=== PATIENT | female | born 1970 | race Caucasian/White ===

== ENCOUNTER 2020-01-20 08:54 | Emergency (ER) | payer OTHER, SELFPAY ==
[2020-01-20] VITALS (9 sets, daily range): BP systolic 88–127; BP diastolic 55–89; PULSE 66–90; RESP 13–21; TEMP 36.6–37.2; O2SAT 93–100
--- NOTE | 2020-01-20 | ECG_ITS ---
Measurements Intervals [place] Rate: 78 P: -6 AL: 107 QRS: 47 QRSD: 91 T: 31 QT: 386 QTc: 440 Interpretive Statements SINUS RHYTHM WITH SHORT AL INTERVAL BORDERLINE T WAVE ABNORMALITY- INFERIOR LEADS BORDERLINE ECG Electronically Signed On 01-20-2020 13:16:47 METAL ENGRAVER by Reggie Orta D.O.
--- NOTE | ~2020-01-20 | XR_ITS ---
EXAMINATION: XR chest 2V 01/20/2020 09:56 INDICATION: Syncope. Cough. PROCEDURE: 2 view chest COMPARISON: 07/26/2019 FINDINGS: The lungs are clear. The cardiomediastinal silhouette is within normal limits. There are no pleural effusions. There is no pneumothorax suspected. IMPRESSION: 1: NO ACUTE CARDIOPULMONARY DISEASE. Reviewed, dictated and finalized at location B. HOSE COUPLER
--- NOTE | ~2020-01-20 | CT_ITS ---
EXAMINATION: CT brain wo con DATE: 01/20/2020 09:52 INDICATION: Status post fall. Head and neck pain. CT dated 07/26/2019 TECHNIQUE: Computed tomography (CT) of the head was performed without intravenous contrast. The dose- length product was 605.33 mGy-cm. The mA was adjusted according to patient size. Iterative reconstruc tion technique was employed. COMPARISON: CT dated 07/26/2019 FINDINGS: Normal alvarez-white differentiation. There are scattered mild periventricular and subcortical white matter changes, most likely related to small vessel ischemic disease (microangiopathy). No acu te intracranial hemorrhage, infarction, mass or mass effect. Basilar cisterns are patent. There is ai r-fluid levels in the maxillary sinuses. Small mucous retention cyst left sphenoid sinus. Mastoids ar e pneumatized. No depressed skull fractures. IMPRESSION: 1. No acute intracranial abnormality. 2: Chronic age-related findings. 3: Mild sinusitis, likely acute. Reviewed, dictated and finalized at location B. ET PUNCH OPERATOR
--- NOTE | ~2020-01-20 | CT_ITS ---
EXAMINATION: CT cervical spine wo con DATE: 01/20/2020 09:52 INDICATION: Neck pain. TECHNIQUE: Computed tomography (CT) of the cervical spine was performed without intravenous contrast. The dose-length product was 148 mGy-cm. Automated exposure control and iterative reconstruction tech nique were employed. COMPARISON: None FINDINGS: Straightening of cervical lordosis, likely due to muscle spasm or patient positioning. [place]land toid process within normal limits. Vertebral body heights are maintained. There is mild multilevel un cinate degenerative change. Lung apices are normal. No paraspinal soft tissue abnormality. No acute f racture or traumatic malalignment. IMPRESSION: 1. No acute fracture. Reviewed, dictated and finalized at location B. AULIC SPECIALIST IMPRESSION: 1. No acute fracture.
--- NOTE | 2020-01-20 09:24 | PC.NURSE ---
FE AT BEDSIDE DRAWING PT LABS AT THIS TIME.
[2020-01-20 09:39] LABS: Basophils Absolute Auto 0.1 K/mm3 (0.0-0.1); Basophils Percent Auto 0.6 % (0.2-1.2); Eosinophils Percent Auto 0.3 % (0-4.4); Hematocrit 37.8 % (37.0-47.0); Hemoglobin 12.4 g/dL (12.0-15.0); Immature Granulocyte Absolute 0.05 K/mm3 (0.00-0.031); Immature Granulocyte Percent A 0.5 % (0-0.5); Lymphocytes Absolute Auto 0.83 K/mm3 (0.9-3.2); Lymphocytes Percent Auto 8.8 % (18.3-44.2); Mean Corpuscular HGB Conc 32.8 g/dl (32-36); Mean Corpuscular Hemoglobin 32.2 pg (26-34); Mean Corpuscular Volume 98.2 fl (80-100); Mean Platelet Volume 10.5 fl (7.4-10.4); Monocytes Absolute Auto 0.6 K/mm3 (0.1-0.6); Monocytes Percent Auto 6.8 % (2.6-8.5); Neutrophils Absolute Auto 7.8 K/mm3 (1.3-6.7); Platelet Count Result 181 k/mm3 (150-375); Red Blood Count 3.85 M/mm3 (4.2-5.4); Red Cell Distribution Width 12.8 % (11.5-14.5); White Blood Count 9.4 K/mm3 (4.5-10.0)
--- NOTE | 2020-01-20 09:53 | PC.NURSE ---
PT IN SCANNER.
[2020-01-20 09:55] LABS: Blood Urea Nitrogen 16 mg/dL (7-17); Calcium 8.2 mg/dL (8.4-10.2); Carbon Dioxide 24 mmol/L (22-30); Chloride 105 mmol/L (98-107); Estimated CRCL calculation 104 ml/min; Estimated Glomerular Filt Rate > 60; Glucose 89 mg/dL (65-105); Potassium 3.6 mmol/L (3.4-5.0); Sodium 136 mmol/L (137-145)
[2020-01-20 10:10] LABS: Troponin I < 0.012 ng/mL (0.000-0.034)
[2020-01-20] MEDS: SODIUM CHLORIDE 0.9% IV 1,000 ML 999 ML IV CONT ×2 (10:12→12:04)
--- NOTE | 2020-01-20 10:26 | ED.DIZZY ---
HPI - Dizziness General Chief Complaint: Dizziness Stated Complaint: DIZZINESS/SYNCOPE Time Seen by Provider: 01/20/20 09:11 Source: patient and family Mode of arrival: EMS Limitations: no limitations History of Present Illness HPI Narrative: This is a 49-year-old female that presents the emergency department for syncopal episode today. Reports over the last couple of weeks she has had cough, congestion, and sore throat. Reports she has been seen by her PCP for this and started on prednisone and an antibiotic. Reports worsening symptoms in the last 2 days. Reports today she walked upstairs to tell her son to get ready to go to the doctor. Reports she suddenly started feeling lightheaded and blacked out. Reports hitting her head on the bed frame. Reports since she has had a headache and neck pain. Denies fever, chest pain, shortness of breath, vision changes, vomiting, numbness or weakness. Related Data Home Medications Medication Instructions Recorded Confirmed doxycycline hyclate 20 mg PO Q12H 01/20/20 Allergies Allergy/AdvReac Type Severity Reaction Status Date / Time hydrocodone Allergy Mild TACHYCARDIA Verified 07/26/19 12:38 Review of Systems Review of Systems: Narrative: CONSTITUTIONAL: Denies fever EYES: Denies visual changes ENT: Reports rhinorrhea, congestion, sore throat. Denies otalgia. CARDIOVASCULAR: Denies chest pain, palpitations RESPIRATORY: Reports cough. Denies dyspnea. GASTROINTESTINAL: Denies vomiting MUSCULOSKELETAL: Reports joint pain, and myalgia. NEUROLOGIC: Reports headache. Denies numbness, or weakness. All systems reviewed & are unremarkable except as noted in HPI and below PMFSH Past Medical History Medical History (Updated 01/20/20 @ 13:23 by Martine Baez PA-C) History of hyperlipidemia Social History Social History (Updated 01/20/20 @ 10:29 by Martine Baez PA-C) Smoking status: Never smoker Substance use: never Gender identity (if verbalized by the patient): Female Exam Narrative: Exam Narrative: GENERAL: Well-appearing, well-nourished, and in no acute distress. HEAD: Normocephalic, atraumatic. EYES: PERRLA and EOMI. ENT: Nares clear, no rhinorrhea or epistaxis. Mucous membranes moist. Oropharynx without tonsillar hypertrophy exudate or other lesions. Bilateral TMs pearly alvarez non-bulging NECK: Supple. No adenopathy or masses. Tender palpation of midline cervical spine CHEST: Clear to auscultation. No respiratory distress. No wheezes rales or rhonchi HEART: Regular rate and rhythm. No murmur heard. Normal peripheral pulses. ABDOMEN: Soft, nontender, nondistended, normal active bowel sounds. BACK: Nontender to palpation of midline thoracic or lumbar spine EXTREMITIES: Normal range of motion. No edema. SKIN: Warm, dry, no rash. NEURO: No focal deficits. Alert and oriented x3. Cranial nerves II through XII grossly intact. Normal [id number] PSYCH: Normal mood and affect Course Consultations Consultation #1: Spoke with patient's primary about patient and work-up will follow-up in clinic Date: 01/20/20 Time: 13:21 Vital Signs Vital signs: Vital Signs Temperature 97.9 F 01/20/20 09:09 Pulse Rate 73 01/20/20 09:09 Respiratory Rate 13 01/20/20 09:09 Blood Pressure 90/65 L 01/20/20 09:09 Pulse Oximetry 93 01/20/20 09:09 Temperature 97.9 F 01/20/20 09:09 Pulse Rate 66 01/20/20 12:51 Respiratory Rate 19 01/20/20 12:51 Blood Pressure 99/68 L 01/20/20 12:51 Pulse Oximetry 95 01/20/20 12:51 MDM - Dizziness MDM Narrative Medical decision making narrative: Patient presents the emergency department for syncopal episode today. Reports feeling lightheaded and then passing out. She denies any chest pain, palpitations or shortness of breath. Patient is neurologically intact. CBC and metabolic panel without acute changes. Troponin is negative. EKG without concerning changes. UA without evidence of infection. Lactic acid is not
[2020-01-20 10:47] LABS: Lactic Acid Reflex 0.8 mmol/L (0.7-2.1)
[2020-01-20 11:38] LABS: Add Urine Microscopic? YES; Appearance Urine Clear (Clear); Bacteria Urine Trace /hpf; Bilirubin Urine Negative (Negative); Blood Urine Negative (Negative); Color Urine Yellow (Yellow); Glucose Urine UA Negative (Negative); Ketones Urine 1+ mg/dL (Negative); Leukocyte Esterase Ur Negative LEU/UL (Negative); Mucus Urine Heavy /lpf; Nitrate Urine Negative (Negative); Protein Urine 2+ mg/dL (Negative); Squamous Epithelial Cell Urine Rare /hpf (Few); Urobilinogen Urine Negative mg/dL (<2.0); WBC Urine 0-3 /hpf
[2020-01-20 11:39] LABS: Specific Grav Ur 1.032 (1.001-1.035)
[2020-01-20] MEDS: OSELTAMIVIR PHOSPHATE 75 MG CAP PO (13:28)
== END 2020-01-20 13:42 | disposition home or self-care (01) ==
PROVIDERS: Physician Assistant; Emergency Provider Emergency Medicine; PCP Student in an Organized Health Care Education/Training Program
DX: J10.1 Influenza due to other identified influenza virus with other respiratory manifestations (principal); I95.9 Hypotension, unspecified; J32.9 Chronic sinusitis, unspecified; R94.31 Abnormal electrocardiogram [ECG] [EKG]
CPT/HCPCS: 36415; 70450; 71046; 72125; 80048; 81001; 81025; 83605; 84484; 85025; 87804; 93005; 96361; 96365; 99284; A9270; J0131; J7030

== ENCOUNTER → 2022-04-25 07:50 | Outpatient (CLI) | payer OTHER, SELFPAY ==
--- NOTE | ~2022-04-25 | MR_ITS ---
EXAMINATION: MR lumbar spine wo con DATE: 04/25/2022 08:54 INDICATION: Lumbar radiculopathy. TECHNIQUE: Magnetic resonance imaging (MRI) of the lumbar spine was performed without intravenous con trast. Sequences included sagittal T2-weighted FSE, sagittal T2-weighted FS FSE, sagittal T1-weighted FSE, and axial T2-weighted FSE. COMPARISON: None FINDINGS: Bone alignment is normal. Vertebral body heights are normal. There is mildly decreased disc height at L4-L5. The distal spinal cord signal intensity is normal. The conus medullaris is at T12. The following disc levels are specifically discussed: L1-L2: The disc does not extend beyond the endplate margin. There is mild bilateral facet joint osteo arthritis. There is no neural foraminal stenosis. There is no central canal stenosis. L2-L3: The disc does not extend beyond the endplate margin. There is moderate bilateral facet joint o steoarthritis. There is no neural foraminal stenosis. There is no central canal stenosis. L3-L4: The disc does not extend beyond the endplate margin. There is mild bilateral facet joint osteo arthritis. There is no neural foraminal stenosis. There is no central canal stenosis. L4-L5: The disc is bulging and has an annular fissure. There is moderate bilateral facet joint osteoa rthritis. There is mild bilateral neural foraminal stenosis. There is mild central canal stenosis. L5-S1: The disc is bulging and has an annular fissure. There is severe bilateral facet joint osteoart hritis. There is mild bilateral neural foraminal stenosis. There is mild central canal stenosis. IMPRESSION: 1. Mild lumbar spondylosis. Reviewed, dictated and finalized at location A. IMPRESSION: 1. Mild lumbar spondylosis.
--- NOTE | ~2022-04-25 | MR_ITS ---
EXAMINATION: MR hip LT wo con DATE: 04/25/2022 08:48 INDICATION: Chronic left hip pain. TECHNIQUE: Magnetic resonance imaging (MRI) of the left hip was performed without intravenous contras t. COMPARISON: None FINDINGS: Bones/cartilage: Bone alignment is normal. No fracture. The femoral head/neck morphologies are normal. The hip joints demonstrate osteophytes. Small [id number] images of left hip demonstrate partial thickness cartila ge loss superiorly and posteriorly. Labrum: The left acetabular labrum is normal. Fluid: There is no hip joint effusion. There is mild bilateral trochanteric bursitis. Soft tissues: There is mild bilateral gluteus minimus tendinopathy. The gluteus medius tendons are normal. The hams tring origins are normal. The iliopsoas tendons are normal. The rectum is distended. IMPRESSION: 1. Mild osteoarthritis of the hips. Reviewed, dictated and finalized at location A.
== END ==
PROVIDERS: PCP Student in an Organized Health Care Education/Training Program; Visit Provider Student in an Organized Health Care Education/Training Program
DX: M54.16 Radiculopathy, lumbar region (principal); M43.16 Spondylolisthesis, lumbar region; M16.0 Bilateral primary osteoarthritis of hip
CPT/HCPCS: 72148; 73721

== ENCOUNTER 2022-05-21 00:50 | Day surgery (SDC) | payer OTHER, SELFPAY ==
[2022-05-12 17:25] VITALS: BMI 25.2
--- NOTE | 2022-05-12 17:26 | PCDIET ---
Addendum entered by Katrin Kasper RN 05/13/22 11:02: PT INSTRUCTED TO CALL DR. SILVERIO'S OFFICE REGARDING STOP DATE FOR ASPIRIN. PT ALSO INSTRUCTED TO DISCONTINUE MULTIVITAMIN 3 DAYS PRIOR TO SURGERY (LAST DOSE 05/17). PT VERBALIZES UNDERSTANDING. Original Note: Report to the Outpatient Waiting Room, entrance under the green pavilion located off [facility], at time _1100_ on date _[id number]_. OR Time: _1300_. - You and your visitor will be asked a series of questions to screen for COVID 19 for your protection. - Only one visitor is allowed at this time. - The patient visitor is requested to leave or wait in car when not with patient. - A mask is required within the hospital. Patients may have clear liquids (water, carbonated beverages, clear teas, apple juice) until 3 hours prior to surgery with a maximum of 20 ounces. - No food from midnight until time of surgery Take the following medications with a SIP of water the morning of surgery: ___None Medications to discontinue per physician ____None Date to take last dose Please no make-up, nail nauruan, hairspray, perfume, deodorant, or body powder the day of surgery. No jewelry (including any body piercings) or valuables the day of surgery, leave them at home. Please take a shower or bath the night before, or the morning of, surgery with an antibacterial soap. Wear comfortable, loose fitting clothing. - Jewelry must be removed prior to entering the operating room. Rings and piercings that are not removed may be cut off. - The hospital will not accept responsibility for valuables. - Please leave all valuables, including medications, at home the day of surgery. If you are going home after surgery, a licensed waste collection driver must drive you home. - NO public transportation without another adult. - We recommend that an adult stay with you for 24 hours following discharge. - We also recommend that you do not drive, make important decision, drink alcoholic beverages, or take any drugs that were not prescribed by your health care provider for at least 24 hours after your discharge time. Follow any additional instructions given to you from your surgeon. If you or anyone in your household have experienced Covid symptoms in the past week, please notify your surgeon or the nurse liaison at the phone number below for possible testing. Telephone instructions given to Patient and asked if any additional questions and then verbalized understanding. Patient advised to call surgeon office or pre surgery nurse liaison [phone] if any additional questions.
--- NOTE | 2022-05-20 10:22 | WPDANESEPPF ---
Anes - Initial Pre Proc Eval Procedure: Operation Date: 05/21/22 13:00 Proposed Procedures p Loop Electrical Excision Procedure with Top Hat - Vicente Hutchinson MD Date/Time: 05/20/22 10:22 Surgeon: Vicente Hutchinson MD Pre Op Diagnosis: Low Grade S.I.L. Patient Data Age: 51 Gender: F Height: 1.63 m Weight: 66.8 kg Allergies Allergy/AdvReac Type Severity Reaction Status Date / Time terbinafine Allergy Severe Rash Verified 05/21/22 10:04 hydrocodone Allergy Mild TACHYCARDIA Verified 05/21/22 10:04 Home Medications Medication Instructions Recorded Confirmed Type aspirin 81 mg tablet,delayed 81 mg PO DAILY 03/24/22 05/21/22 History release evolocumab 140 mg/mL subcutaneous 140 mg subcut ONCE 03/24/22 05/21/22 History pen injector (Repatha SureClick) rosuvastatin 40 mg tablet (Crestor) 40 mg PO DAILY 03/24/22 05/21/22 History multivitamin 1 tablet PO DAILY 05/12/22 05/21/22 History tramadol 50 mg tablet 50 mg PO Q6H PRN Pain 05/12/22 05/21/22 History Patient hx anesthesia problems: none Family hx anesthesia problems: none Results Review: All pre-operative results and documents have been reviewed as part of the pre-operative evaluation. FOR[facility]LY [facility] Past Medical History Medical History Anxiety AUGUSTO I (cervical intraepithelial neoplasia I) Headache History of hyperlipidemia TIA (transient ischemic attack) Surgical History Surgical History H/O tubal ligation History of carpal tunnel surgery S/P dilation and curettage S/P endometrial ablation [place] teeth removed Family History Family History Mother Family history of cardiovascular disease Father Family history of cardiovascular disease Grandparent Family history of cardiovascular disease Other Hypertension Social History Social History Smoking status: Never smoker Alcohol intake: current Drinks per week: 2 Substance use: never Living arrangements: with family Gender identity (if verbalized by the patient): Female Spiritual care concerns: No Anes - Eval Final PreProcedure Day of Procedure 05/20/22 10:22 Patient weight: normal Heart: regular rate and rhythm Lungs: clear to auscultation and normal air movement Airway: Mallampati scale class II Neurological: alert and oriented Last oral intake: >/= 8 hours ASA classification: III Emergent: no Anesthetic plan: proceed Anesthesia type and monitoring: general GIVS Results Review: All pre-operative results and documents have been reviewed as part of the pre-operative evaluation. Informed Consent: The patient's anesthetic plan and its attendant risks and benefits were discussed with the patient/family/POA. Questions were solicited and answers provided to the satisfaction of the patient/family/POA.
--- NOTE | 2022-05-20 22:55 | PM.IMHP ---
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 The cervical biopsies at 6 and 11 and endocervical curette positive for CIN1. She was recommended for LEEP which she wants to proceed with this ablative procedure. Review of Systems Review of Systems: All systems reviewed & are unremarkable except as noted in HPI and below Constitutional: Constitutional: Reports no additional constitutional complaints Eyes: Eyes: Reports no additional eye complaints Cardiovascular: Cardiovascular: Reports no additional cardiovascular complaints Respiratory: Respiratory: Reports no additional respiratory complaints Gastrointestinal: Gastrointestinal: Reports no additional gastrointestinal complaints Genitourinary: Genitourinary: Reports no additional female genitourinary complaints and Reports as per HPI Integumentary/Breasts: Skin/Breast: Reports system reviewed and no additional complaints, except as docu Neurologic: Reports system reviewed and no additional complaints, except as documented Psychiatric: Psychiatric: Reports no additional psychiatric complaints Hematologic/Lymphatic: Hematologic/Lymphatic: Reports no additional hematologic/lymphatic complaints REPLACED BY [facility] Past Medical History Medical History Anxiety AUGUSTO I (cervical intraepithelial neoplasia I) Headache History of hyperlipidemia TIA (transient ischemic attack) Surgical History Surgical History H/O tubal ligation History of carpal tunnel surgery S/P dilation and curettage S/P endometrial ablation [place] teeth removed Family History Family History Mother Family history of cardiovascular disease Father Family history of cardiovascular disease Grandparent Family history of cardiovascular disease Other Hypertension Social History Social History Smoking status: Never smoker Alcohol intake: current Drinks per week: 2 Substance use: never Gender identity (if verbalized by the patient): Female Spiritual care concerns: No Meds Home Medications and Allergies Home Medications Medication Instructions Recorded Confirmed Type aspirin 81 mg tablet,delayed 81 mg PO DAILY 03/24/22 05/12/22 History release evolocumab 140 mg/mL subcutaneous 140 mg subcut ONCE 03/24/22 05/12/22 History pen injector (Repatha SureClick) rosuvastatin 40 mg tablet (Crestor) 40 mg PO DAILY 03/24/22 05/12/22 History multivitamin 1 tablet PO DAILY 05/12/22 05/12/22 History tramadol 50 mg tablet 50 mg PO Q6H PRN Pain 05/12/22 05/12/22 History Allergies Allergy/AdvReac Type Severity Reaction Status Date / Time terbinafine Allergy Severe Rash Verified 05/12/22 17:14 hydrocodone Allergy Mild TACHYCARDIA Verified 05/12/22 17:14 Exam Const: General: comfortable and no acute distress Orientation/consciousness: oriented to person, oriented to place and oriented to time Eyes: General: appearance normal, both eyes and all related structures Neck: Neck: normal visual inspection Resp: Effort & Inspection: normal respiratory effort Auscultation: clear to auscultation bilaterally Cardio: Rate: regular rate Rhythm: regular rhythm GI: Inspection: normal to inspection GI Palp: No abdominal tenderness and Yes No hepatosplenomegaly present : External Female Exam: normal external appearance Speculum Exam - Vagina: normal appearance of the vagina Speculum Exam - Cervix: normal appearance of the cervix Bimanual exam- vagina & uterus: normal bimanual exam, uterine mobility normal, uterine shape normal and non-tender Bimanual Exam- Adnexa, oth
[2022-05-21 10:02] VITALS: BP 115/74; PULSE 63; RESP 18; TEMP 36.3; O2SAT 100
[2022-05-21] MEDS: ACETAMINOPHEN 500 MG TABLET 1000 MG PO (10:19)
[2022-05-21] MEDS: LACTATED RINGERS 1,000 ML 30 ML IV CONT (10:19)
--- NOTE | 2022-05-21 10:23 | WPDHPUPDATE1 ---
History and Physical Update Update Date/Time: 05/21/22 10:23 History and Physical has been reviewed, including an updated exam of the patient. There are NO changes in the patient's condition. Risks, benefits, and alternatives have been discussed and questions answered. Patient agrees to proceed with procedure.
[2022-05-21] MEDS: ceFAZolin 2 GM/D5W 50 ML 2 GM/50 ML BAG IVPB (10:44)
[2022-05-21] MEDS: IODINE/POTASSIUM IODIDE 8 ML SOLUTION 2 ML TOPICAL (10:55)
[2022-05-21] MEDS: LIDOCAINE HCL 1% LOCAL INJ 20 ML VIAL 10 ML INFILTRATE (10:55)
[2022-05-21] MEDS: FERRIC SUBSULFATE 8 ML SOLUTION WITH APPLICATOR 2 ML TOPICAL (10:55)
[2022-05-21 11:09] VITALS: BP 94/58; PULSE 64; RESP 16; O2SAT 95
[2022-05-21 11:38] VITALS: BP 93/60; PULSE 58; RESP 16
[2022-05-21 11:54] VITALS: BP 96/41; PULSE 56; RESP 18
--- NOTE | 2022-05-21 13:24 | W.PM.PROC2 ---
Procedure Note - Detailed Date of Procedure 05/21/22 Pre-op Diagnosis Low Grade S.I.L. Post-op Diagnosis Same Procedure Performed Loop electrosurgical excision procedure Surgeon Vicente Hutchinson MD Anesthesia MAC and Local Indications Positive CIN1 on ECC Findings No hypopigmentation with Lugols visualized. Description of Procedure The patient was taken to the OR where adequate IV sedation was administered. She was then prepped and draped in the usual sterile fashion and placed in the dorsal lithotomy position. A Graves speculum was placed in the vagina. Lugol?s solution was painted along the entire cervix and vaginal wall. No areas of hypopigmentation noted. 10 cc of lidocaine with epinephrine was injected at surgical site. The large loop electrode was used to enclose the transformation zone. The specimen was sent to pathology. The smallest loop electrode was used to obtain a top hat for excision of the endocervix. The bed of the excised cervical tissue along the cervix was cauterized using the roller ball. Monsel's solution was placed. Hemostasis was noted. All instruments were removed from vagina at this point. The patient tolerated the procedure well without complication and was taken to the recovery room in stable condition. Estimated Blood Loss 5 Drains No Packing No Pathology Yes (Ectocervical and endocervical LEEP pass, ecto cervix specimen cut at 12.) Complications No immediate complications Condition Stable Disposition Same day [facility] Billing Surgery - Charge Forward: Surgery Billing
== END 2022-05-21 12:00 | disposition home or self-care (01) ==
PROVIDERS: PCP Student in an Organized Health Care Education/Training Program; Visit Provider Obstetrics & Gynecology
PROC: 0UBC7ZZ Excision of Cervix, Via Natural or Artificial Opening (ICD-10-PCS; CPT 57522; principal; 2022-05-21 13:00)
DX: R87.612 Low grade squamous intraepithelial lesion on cytologic smear of cervix (LGSIL) (principal); E78.5 Hyperlipidemia, unspecified; Z86.73 Personal history of transient ischemic attack (TIA), and cerebral infarction without residual deficits; Z79.82 Long term (current) use of aspirin
CPT/HCPCS: 57522; 88305; 88307; A9270; J0690; J1100; J1885; J2250; J2405; J2704; J3010; J7120

== ENCOUNTER 2022-06-25 15:35 | Emergency (ER) | payer OTHER, SELFPAY ==
[2022-06-25 15:42] VITALS: BP 110/71; PULSE 66; RESP 16; TEMP 36.7; O2SAT 100
--- NOTE | 2022-06-25 16:01 | ED.EXTPRO ---
HPI - Extremity Problem General Chief complaint: Extremity Problem,Nontraumatic Stated complaint: left leg pain Time Seen by Provider: 06/25/22 16:02 Source: patient Mode of arrival: ambulatory Limitations: no limitations History of Present Illness HPI Narrative: 52-year-old female presented for complaint of left lower leg redness, pain, and mild swelling for 4 days. Endorses tenderness to touch and feels a 'knot.' She denies known injury or trauma. Denies prolonged immobilization or recent travel. Denies chest pain, heart racing, shortness of breath, fever or chills. Related Data Home Medications Medication Instructions Recorded Confirmed aspirin 81 mg tablet,delayed 81 mg PO DAILY 03/24/22 06/25/22 release evolocumab 140 mg/mL subcutaneous 140 mg subcut ONCE 03/24/22 06/25/22 pen injector (Repatha SureClick) rosuvastatin 40 mg tablet (Crestor) 40 mg PO DAILY 03/24/22 06/25/22 multivitamin 1 tablet PO DAILY 05/12/22 06/25/22 Allergies Allergy/AdvReac Type Severity Reaction Status Date / Time terbinafine Allergy Severe Rash Verified 06/25/22 15:47 hydrocodone Allergy Mild TACHYCARDIA Verified 06/25/22 15:47 Review of Systems Review of Systems: CONSTITUTIONAL: Denies body aches, fever, chills EYES: Denies visual changes ENT: Denies rhinorrhea, congestion CARDIOVASCULAR: Denies chest pain, palpitations, or edema. RESPIRATORY: Denies cough or dyspnea. GASTROINTESTINAL: Denies abdominal pain, nausea, vomiting, or diarrhea. SKIN: Denies rash, itching, or wounds. MUSCULOSKELETAL: Reports lower leg pain/swelling NEUROLOGIC: Denies headache, numbness, tingling, or weakness. PSYCH: Denies depression or anxiety. All systems reviewed & are unremarkable except as noted in HPI and below PMFSH Past Medical History Medical History Anxiety AUGUSTO I (cervical intraepithelial neoplasia I) Headache History of hyperlipidemia TIA (transient ischemic attack) Surgical History Surgical History H/O tubal ligation History of carpal tunnel surgery S/P dilation and curettage S/P endometrial ablation [place] teeth removed Family History Family History Mother Family history of cardiovascular disease Father Family history of cardiovascular disease Grandparent Family history of cardiovascular disease Other Hypertension Social History Social History Smoking status: Never smoker Alcohol intake: current Drinks per week: 2 Substance use: never Gender identity (if verbalized by the patient): Female Spiritual care concerns: No Comments At time of signature, I have reviewed and agree with nursing past medical, surgical, social and family history unless otherwise noted. Please see nursing chart for further information. There is no relevant family history pertinent to the presenting complaint Exam Narrative: GENERAL: Well-appearing EYES: conjunctivae clear CHEST: Speaks in full sentences. No respiratory distress. HEART: Regular rate and rhythm. Normal and equal peripheral pulses. EXTREMITIES: Left anterior lower leg just proximal to ankle has mild swelling (1+) and irregular area of light erythema approx 4cm diameter mild tender to palpation; subcutaneous tender palpable cord medial to area of erythema c/w phlebitis; foot has normal strength and sensation, normal range of motion. No bruising, No open wounds, or obvious deformity; pulse palpable and equal bilaterally, skin warm, dry, pink. Capillary refill less than 3 seconds. SKIN: Warm, dry, no rash. NEURO: Alert and oriented x3. PSYCH: Normal mood and affect Course Course Emergency Course: Patient is aware of diagnosis, understands and agrees to treatment plan. Anticipatory guidance given. Patient agrees to follow-up as dir
== END 2022-06-25 16:24 | disposition home or self-care (01) ==
PROVIDERS: Emergency Provider Nurse Practitioner Family; PCP Student in an Organized Health Care Education/Training Program
DX: I80.3 Phlebitis and thrombophlebitis of lower extremities, unspecified (principal); E78.5 Hyperlipidemia, unspecified; Z86.73 Personal history of transient ischemic attack (TIA), and cerebral infarction without residual deficits; Z79.82 Long term (current) use of aspirin; N87.0 Mild cervical dysplasia
CPT/HCPCS: 99213; G0463

== ENCOUNTER 2022-06-26 16:00 | Outpatient (CLI) | payer OTHER, SELFPAY ==
--- NOTE | ~2022-06-26 | US_ITS ---
EXAMINATION:US venous doppler LE LT INDICATION:Left leg pain TECHNIQUE: Multiple grayscale, color flow and Doppler images of the left lower extremity deep venous systems were obtained and reviewed. COMPARISON:No prior studies for comparison. FINDINGS: The common femoral, superficial femoral and popliteal veins demonstrate normal respiratory variation, augmentation and compressibility. Color flow is also seen within the posterior tibial, pe roneal, greater saphenous and profunda veins. IMPRESSION: 1: No lower extremity deep venous thrombosis. Reviewed, dictated and finalized at location A.
== END 2022-06-26 16:01 | disposition home or self-care (01) ==
PROVIDERS: PCP Student in an Organized Health Care Education/Training Program; Visit Provider Student in an Organized Health Care Education/Training Program
DX: M79.605 Pain in left leg (principal)
CPT/HCPCS: 93971

== ENCOUNTER 2022-12-03 07:52 | Outpatient (CLI) | payer OTHER, SELFPAY ==
--- NOTE | ~2022-12-03 | MM_ITS ---
EXAMINATION: MM screening desean BI w rob HISTORY: Screening mammogram TECHNIQUE: Craniocaudal and mediolateral oblique 3-D tomosynthesis images were obtained and synthetic 2-D images were generated. CAD analysis was submitted and interpreted. COMPARISON: No prior mammogram is available for comparison at this institution. BREAST PARENCHYMAL COMPOSITION: There are scattered areas of fibroglandular density. FINDINGS: There is no evidence of suspicious mass, calcification, or architectural distortion to sugg est malignancy in either breast. There has been no suspicious interval change. IMPRESSION: 1. No mammographic evidence of malignancy. 2. Recommend routine screening mammography in one year. BI-RADS Category 1: Negative Reviewed, dictated and finalized at location B. 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
== END 2022-12-03 07:53 | disposition home or self-care (01) ==
LOC: ANHIMG 07:54
PROVIDERS: PCP Student in an Organized Health Care Education/Training Program; Visit Provider Obstetrics & Gynecology
DX: Z12.31 Encounter for screening mammogram for malignant neoplasm of breast (principal)
CPT/HCPCS: 77063; 77067

== ENCOUNTER 2024-01-20 08:10 | Outpatient (CLI) | payer OTHER, SELFPAY ==
--- NOTE | ~2024-01-20 | MM_ITS ---
EXAMINATION: MM screening desean BI w rob HISTORY: Screening mammogram TECHNIQUE: Craniocaudal and mediolateral oblique 3-D tomosynthesis images were obtained and synthetic 2-D images were generated. CAD analysis was submitted and interpreted. COMPARISON: 12/03/2022 bilateral screening mammogram BREAST PARENCHYMAL COMPOSITION: There are scattered areas of fibroglandular density. FINDINGS: There is no evidence of suspicious mass, calcification, or architectural distortion to sugg est malignancy in either breast. There has been no suspicious interval change. IMPRESSION: 1. No mammographic evidence of malignancy. 2. Recommend routine screening mammography in one year. BI-RADS Category 1: Negative Reviewed, dictated and finalized at location A. 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
== END 2024-01-20 08:11 | disposition home or self-care (01) ==
LOC: ANHIMG 08:16
PROVIDERS: PCP Student in an Organized Health Care Education/Training Program; Visit Provider Obstetrics & Gynecology
DX: Z12.31 Encounter for screening mammogram for malignant neoplasm of breast (principal)
CPT/HCPCS: 77063; 77067

== ENCOUNTER 2025-01-23 15:39 | Outpatient (CLI) | payer OTHER, SELFPAY ==
--- NOTE | ~2025-01-23 | MM_ITS ---
EXAMINATION: MM screening desean BI w rob HISTORY: Screening mammogram TECHNIQUE: Craniocaudal and mediolateral oblique 3-D tomosynthesis images were obtained and synthetic 2-D images were generated. CAD analysis was submitted and interpreted. COMPARISON: 01/20/2024, 12/03/2022 BREAST PARENCHYMAL COMPOSITION:Not Dense. There are scattered areas of fibroglandular density. FINDINGS: No suspicious mass, calcification, or architectural distortion are identified in either porfirio ast to suggest malignancy. There has been no suspicious interval change. IMPRESSION: No mammographic evidence of malignancy. Recommend routine screening mammography in one year. BI-RADS Category 1: Negative Reviewed, dictated and finalized at location .
--- OUTSIDE RECORDS SUMMARY | 2025-01-23 18:26 | XMS_ITS | Encounter Summary ---
Author Organization [facility] Address [address] [place] [id number] Care Team Providers Care Merchandise Complaint Adjuster Name Role Phone Rigo Coyne DO Primary Care Provider + Encounter Details Date Type Department Care Team (Latest Contact Info) Description 09/21/2018 Abstract [facility] , Shannon Bhakta MD Social History Tobacco Use Types Packs/Day Years Used Date Smoking Tobacco: Never Assessed Comments Unknown Sex and Gender Information Value Date Recorded Sex Assigned at Female 12/22/2024 7:33 AM CLINICAL ASSESSMENT MANAGER Legal Sex Female 3:51 PM CDT Gender Identity Female 12/22/2024 7:33 AM CLINICAL ASSESSMENT MANAGER Sexual Orientation Not on file documented as of this encounter Plan of Treatment Upcoming Encounters Date Type Department Care Team (Late st Contact Info) Description 03/07/2025 7:40 AM CDT Laboratory Only [facility] [id number] [place] [phone] Rigo Coyne DO [address] [place] [address] 12/25/2025 7:20 AM CLINICAL ASSESSMENT MANAGER Office Visit [facility] [address] [place] [phone] Rigo Coyne DO [address] [place] [address] documented as of this encounter Visit Diagnoses Not on filedocumented in this encounter Care Teams Merchandise Complaint Adjuster Relationship Specialty Start Date End Date Rigo Coyne DO [address] [place] [id number] PCP - General FAMILY PRACTICE 10/14/18 documented as of this encounter
--- OUTSIDE RECORDS SUMMARY | 2025-01-23 18:26 | XMS_ITS | Clinical Summary ---
Author Organization [facility] D Address [address] [place] [address] Care Team Providers Care Line Maintenance Technician Name Role Phone Rigo Coyne Primary Care Provide r Allergies Active Allergy Reactions Criticality Noted Date Comments Adhesive Hives Medium 12/20/2024 Surgical tape Hydrocodone Dizziness,Palpitations,Unknown Low 08/16 Terbinafine Rash Medium 08/24/2019 Medications aspirin 81 mg tablet take 1 tablet by oral route every day 0 0 7 Active mv,calcium,min/ iron/folic/vitK (ONE-A-DAY WOMEN'S COMPLETE ORAL) Take by mouth A ctive ascorbic acid (VITAMIN C) 500 mg tablet,chewable Acti ve cholecalciferol , vitamin D3, (VITAMIN D3 ORAL) Take by mouth Active cyclobenzaprine (FLEXERIL) 10 mg tablet Takes prn 2 Active naproxen (NAPROSYN) 500 mg tablet 2 Active tirzepatide (MOUNJARO) 2.5 mg/0.5 mL pen injector Inject 0.5 mL (2.5 mg total) under the skin every 7 days Active rosuvastatin (CRESTOR) 40 mg tablet TAKE 1 TABLET BY MOUTH EVERY DAY 90 tablet 1 4 Active evolocumab (Repatha SureClick) 140 mg/mL pen injector ADMINISTER 1 ML(140 MG) UNDER THE SKIN EVERY 14 DAYS 6 mL 3 4 Active estradioL (ESTRACE) 0.01 % (0.1 mg/gram) vaginal cream Insert into the vagina daily 4 Active Active Problems Problem Noted Date Diagnosed Date Screen for colon cancer 10/26/2024 Lumbar radiculopathy 02/16/2024 Chest tightness 10/07/2017 Assessment & Plan (10/07/2017 3:54 PM CENTRIFUGAL CHILLER TECHNICIAN): She complains of new onset chest tightness, with no exertional component, the setting of marked hyperlipidemia, family history of CAD, and an abnormal EKG. At this time I think it is unlikely this represents symptoms from coronary ischemia, however, given her risk factors I do think treadmill stress testing would be appropriate. Familial hypercholesterolemia 10/07/2017 Assessment & Plan (10/24/2021 3:26 PM CENTRIFUGAL CHILLER TECHNICIAN): Continue Repatha on high-dose rosuvastatin. Assessment & Plan (10/25/2020 3:35 PM CENTRIFUGAL CHILLER TECHNICIAN): Today's LDL is well controlled, continue high-dose statin and PC KS nine inhibitor. Assessment & Plan (10/06/2019 8:11 AM CENTRIFUGAL CHILLER TECHNICIAN): Marked improvement with the addition of Praluent still potential for additional LDL reduction. Will increase rosuvastatin 40 mg. Assessment & Plan (09/30/2018 11:45 AM CENTRIFUGAL CHILLER TECHNICIAN): Still elevated despite alirocumab, add crestor 20. Assessment & Plan (10/07/2017 3:55 PM CENTRIFUGAL CHILLER TECHNICIAN): Still elevated on 75 mg of Praluent. Will increase to 150 mg and reassess. Encounters Date Type Department Care Team Description 01/18/2025 2:51 PM CENTRIFUGAL CHILLER TECHNICIAN - 01/18/2025 11:59 PM CENTRIFUGAL CHILLER TECHNICIAN Hospital Encounter [facility] [address] [place] [address] Betsey Kapadia MD Lumbar radiculopathy Discharge Disposition: Discharge to home or self care 01/18/2025 Telephone [facility] at [address], [address] [place], [place] [address] Betsey Kapadia MD appt question 01/12/2025 Telephone [facility] [address] [place], [place] [address] Betsey Kapadia MD 01/05/2025 Orders Only [facility] [address] [place], [place] [address] Betsey Kapadia MD Lumbar radiculopathy (Primary Dx) 01/03/2025 Telephone [facility] [address] [place], [place] [phone] Betsey Kapadia MD Post Procedure 12/20/2024 2:30 PM CENTRIFUGAL CHILLER TECHNICIAN - 12/20/2024 11:59 PM CENTRIFUGAL CHILLER TECHNICIAN Hospital Encounter [facility] at [address] [place], [place] [address] Betsey Kapadia MD Lumbar radiculopathy Discharge Disposition: Discharge to home or self care 12/06/2024 12:37 PM CENTRIFUGAL CHILLER TECHNICIAN Anesthesia Event [address] [address] Casey Linn MD Williams, Calvin E., MD 12/06/2024 12:00 PM CENTRIFUGAL CHILLER TECHNICIAN - 12/06/2024 12:30 PM CENTRIFUGAL CHILLER TECHNICIAN Surgery [address] [address] Janusz Nguyen MD COLON BIOPSY 12/06/2024 11:34 AM CENTRIFUGAL CHILLER TECHNICIAN - 12/06/2024 1:57 PM CENTRIFUGAL CHILLER TECHNICIAN Hospital Encounter [address] [address] Janusz Nguyen MD Screen for colon cancer Discharge Disposition: Discharge to home or self care from Last 3 Months Surgical History Surgery Date Site/Laterality Comments TUBAL LIGATION tubal ligation CARPAL TUNNEL RELEASE COLONOSCOPY 02/14/2019 - 03/15/2019 COLONOSCOPY 12/06/2024 Medical History Medical History Date Comments Hypercholesterolemia High choles terol Anxiety Low back pain Anemia donated blood pr ior to blood tests, this is not yet confirmed Chronic pain disorder Family History Medical History Relation Name Comments Heart attack Other Family history of Myocardial infarction; Relation Name Status Comments Other Social History Tobacco Use Types Packs/Day Years Used Date Smoking Tobacco: Never Smokeless Tobacco: Never Tobacco Cessation:Counseling Given: Not Answered Alcohol Use Standard Drinks/Week Comments No 0 (1 standard drink = 0.6 oz pur e alcohol) AUDIT-C Answer Date Recorded Q1: How often do you have a drink containing alcohol? Never 01/18/2025 Q2: How many drinks containi ng alcohol do you have on a typical day when you are drinking? Patient does not drink Q3: How often do you have si x or more drinks on one occasion? Never 01/18/2025 Personal Safety Answer Date Recorded Have you ever been in or are you currently in a harmful physical or emotional relationship or is someone making you feel afraid or unsafe? Denies 12/06/2024 Comments No Sex and Gender Information Value Date Recorded Sex Assigned at Not on file Legal Sex Female 9:27 PM CENTRIFUGAL CHILLER TECHNICIAN Gender Identity Not on file Sexual Orientation Not on file Obstetrics History Last Filed Vital Signs Vital Sign Reading Time Taken Comments Blood Pressure 150/94 01/18/2025 3:56 PM CENTRIFUGAL CHILLER TECHNICIAN Pulse 63 01/18/2025 3:56 PM CENTRIFUGAL CHILLER TECHNICIAN Temperature 36 C (96.8 F) 01/18/2025 2:54 PM CENTRIFUGAL CHILLER TECHNICIAN Respiratory Rate 18 01/18/2025 3:56 PM CENTRIFUGAL CHILLER TECHNICIAN Oxygen Saturation 100% 01/18/2025 3:56 PM CENTRIFUGAL CHILLER TECHNICIAN Inhaled Oxygen Concentration - - Weight 57.2 kg (126 lb) 01/18/2025 2:54 PM CENTRIFUGAL CHILLER TECHNICIAN Height 160 cm (5' 3 ) 01/18/2025 2:54 PM CENTRIFUGAL CHILLER TECHNICIAN Body Mass Index 22.32 01/18/2025 2:54 PM CENTRIFUGAL CHILLER TECHNICIAN Plan of Treatment Health Maintenance Due Date Last Done Comments Cervical Cancer Screening 1970 Depression Screening 1970 Hepatitis C Screening 1970 Hepatitis B Screening 1986 Regular Well Visit/Exam 18-64 1986 Breast Cancer Screening-Mammogram 04/18/2022 04/18/2021, 01/09/2020, 11/03/2017, Additional history exists Covid-19 Vaccine ( - 2023- season) 2024 04/10/2021, 03/06/2021 DTaP/Tdap/Td Vaccine (3 - Td or Tdap) 05/23/2030 05/23/2020, 08/20/2016 Colon Cancer Screening-Colonoscopy 12/06/2034 12/06/2024 Zoster Vaccine Completed 06/03/2022, 03/04/2022 Influenza Vaccine Completed 10/01/2024, , 07/31/2022, Additional history exists Colon Cancer Screening-CT Colonography Discontinued 12/06/2024 Colon Cancer Screening-DNA Stool Discontinued 12/06/2024 Colon Cancer Screening-FIT Discontinued 12/06/2024 Colon Cancer Screening-Sigmoidoscopy Discontinued 12/06/2024 Pneumococcal vaccine <65 Aged Out No longer eligible based on patient's age to complete this topic Goals Goal Patient Goal Type Associated Problems Recent Progress Patient-Stated? Author CCM Chronic Pain Care Plan Chronic Care Management Yes Nga Dorsey, IDALMIS Note: Problem: Chronic Pain Goals: 1. Minimize further functional decline 2. Maximize quality of life 3. Control pain Strategies: - Activity/exercise program recommendation - Conservative stepwise pain medicine strategy with multi-disciplinary approach - Recommend healthy lifestyle strategies and compensatory methods as needed Reduce the likelihood of falling Lifestyle No Nga Dorsey, IDALMIS Note: Below are four things you can do to prevent falls: Begin an exercise program to improve your leg strength & balance Ask your doctor or pharmacist to review your medicines Get annual eye check-ups & update your eyeglasses Make your home safer by: Removing clutter & tripping hazards Putting railings on all stairs & adding grab bars in the bathroom Having good lighting, especially on stairs Contact your local community or senior center for information on exercise, fall prevention programs, or options for improving home safety. Procedures Procedure Name Priority Date/Time Associated Diagnosis Comments PAIN MGMT IMAGING LUMBAR/SACRAL SELECTIVE NERVE ROOT INJ (TFE) RIGHT Schedule Routine, Read Routine (OP Routine) 01/18/2025 3:43 PM CENTRIFUGAL CHILLER TECHNICIAN Lumbar radiculopathy PAIN MGMT IMAGING LUMBAR/SACRAL SELECTIVE NERVE ROOT INJ (TFE) LEFT Schedule Routine, Read Routine (OP Routine) 12/20/2024 3:30 PM CENTRIFUGAL CHILLER TECHNICIAN Lumbar radiculopathy COLON BIOPSY 12/06/2024 12:25 PM CENTRIFUGAL CHILLER TECHNICIAN Screen for colon cancer COLONOSCOPY 12/06/2024 11:48 AM CENTRIFUGAL CHILLER TECHNICIAN SURGICAL PATHOLOGY STAT 12/06/2024 10 :08 AM CENTRIFUGAL CHILLER TECHNICIAN Screen for colon cancer SCREENING MAMMOGRAM BILATERAL W JOSÉ 04/18/2021 3:03 PM CDT from Last 3 Months or Most Recently Relevant to Health Maintenance Results * Imaging Lumbar/Sacral Selective Nerve Root INJ (TFE) Right (99634) (01/18/2025 3:43 PM CENTRIFUGAL CHILLER TECHNICIAN) Narrative RAD_PACS[facility] - 01/18/2025 3:55 PM CENTRIFUGAL CHILLER TECHNICIAN The images from this study are not interpreted by Radiology. Please refer to the physician's procedure / OR operative note. Betsey OLIVARES PAIN MGMT PROCEDURES F inal Result Performing Organization Address [facility] de Phone Number [email or web address] * Imaging Lumbar/Sacral Selective Nerve Root INJ (TFE) Left (16422) (12/20/2024 3:30 PM CENTRIFUGAL CHILLER TECHNICIAN) Narrative [facility] - 12/20/2024 3:36 PM CENTRIFUGAL CHILLER TECHNICIAN The images from this study are not interpreted by Radiology. Please refer to the physician's procedure / OR operative note. Betsey Kapadia MD [facility] PAIN MGMT PROCEDURES F inal Result Performing Organization Address [facility] Co de Phone Number [email or web address] * Colonoscopy (12/06/2024 11:48 AM CENTRIFUGAL CHILLER TECHNICIAN) Anatomical Region Laterality Modality Other Narrative Procedure Note Janusz Nguyen MD - 12/06/2024 11:48 AM CST [facility] Patient Name: Bobby Alvarenga Procedure Date: 12/06/2024 11:48 AM Date of : 1970 Admit Type: Outpatient Age: 54 Gender: Female Attending MD: Janusz Nguyen M.D. Room: [facility] ENDOSCOPY ROOM 2 Note Status: Finalized Patient Profile: Refer to note in patient chart for documentation of history and physical. Procedure: Colonoscopy Indications: Screening for colorectal malignant neoplasm, Last colonoscopy: February 2019 Referring MD: Rigo Coyne D.O. Providers: Janusz Nguyen M.D. Impression: - Preparation of the colon was inadequate. - Diverticulosis in the sigmoid colon. - One 3 mm polyp in the cecum, removed with a jumbo cold forceps. Resected and retrieved. Recommendation: - Discharge patient to home. - Resume previous diet. - Continue present medications. - Await pathology results. - Repeat colonoscopy in 5-10 years forsurveillance. - Return to endoscopist in 1 week. Medicines: Propofol per Anesthesia Complications: No immediate complications. Estimated Blood Loss: Estimated blood loss was minimal. Procedure: Pre-Anesthesia Assessment: - Prior to the procedure, a History and Physicalwas performed, and patient medications and allergieswere reviewed. The patient's tolerance of previous anesthesia was also reviewed. The risks andbenefits of the procedure and the sedation options and risks were discussed with the patient. All questions were answered, and informed consent was obtained. Prior Anticoagulants: The patient has taken noanticoagulant or antiplatelet agents. ASA Grade Assessment: II -A patient with mild systemic disease. After reviewing the risks and benefits, the patient was deemed in satisfactory condition to undergo the procedure. The benefits, risks and alternatives of theprocedure and sedation were discussed and informed consentwas obtained. All questions were answered. Please referto the signed informed consent document in the medical record. The bowel preparation used was Miralax via split dose instruction. The bowel preparation usedwas bisacodyl tablets via split dose instruction. The scope was passed under direct vision. The Pediatric Colonoscope PCF-H190L [id number] was introducedthrough the anus and advanced to the the cecum, identifiedby appendiceal orifice and ileocecal valve. Thequality of the bowel preparation was not adequate toidentify polyps 6 mm and larger in size. The ileocecalvalve, appendiceal orifice, and rectum were photographed.The patient tolerated the procedure well. Scopewithdrawal time was 10 minutes. The bowel preparation used was Miralax via single dose instruction. Bowel prep was administered using a single dose. Findings: The perianal and digital rectal examinations were normal. Pertinent negatives include normal sphincter tone. A few small-mouthed diverticula were found in the sigmoid colon. A 3 mm polyp was found in the cecum. The polyp was sessile. The polyp was removed with a jumbo cold forceps. Resection and retrieval were complete. Verification of patient identification for the specimen was done by the nurse using the patient's name and date. Estimated blood loss was minimal. No additional abnormalities were found on retroflexion. Janusz Nguyen M.D. 12/06/2024 12:59:59 PM Number of Addenda: 0 Note Initiated On: 12/06/2024 11:48 AM Procedure Code(s): --- Professional --- 43297, Colonoscopy, flexible; with biopsy, single or multiple --- Technical --- 45342, Colonoscopy, flexible; with biopsy, single or multiple Diagnosis Code(s): --- Professional --- Z12.11, Encounter for screening for malignant neoplasm of colon D12.0, Benign neoplasm of cecum K57.30, Diverticulosis of large intestine without perforation orabscess without bleeding --- Technical --- Z12.11, Encounter for screening for malignant neoplasm of colon D12.0, Benign neoplasm of cecum K57.30, Diverticulosis of large intestine without perforation orabscess without bleeding CPT copyright 2020 [employer]. All rights reserved. The codes documented in this report are preliminary and upon weaving teacher reviewmay be revised to meet current compliance requirements. Recognized by the [place] [employer] for promoting quality in endoscopy Janusz Nguyen MD ENDOSCOPY PROCED URES Final Result * Surgical pathology (12/06/2024 10:08 AM CENTRIFUGAL CHILLER TECHNICIAN) Tissue (Polyp(s), colon/colorectal, esophageal, gastric) 12/06/2024 12:58 PM CENTRIFUGAL CHILLER TECHNICIAN Narrative PATHOLOGY [facility] - 12/09/2024 9:44 AM CENTRIFUGAL CHILLER TECHNICIAN EPIC results best viewed via link to PDF [facility] Department of Pathology [address] [place], [place] [id number] Note to Patients: This report may contain a detailed description of human tissue sent by a health care provider to the laboratory for pathologic evaluation. The content of this report is essential for diagnosis and may provide important critical findings. This information may be unfamiliar to patients to review without a medical professional present. It is advised that the patient review this report in the presence of a health care provider who can answer questions and explain the details. Final Report Patient Name: BOBBY ALVARENGA Address: [address] [place] [address] Gender: F : 1970 (Age: 54) Service: Surgery Location: [facility] Hospital #: [id number] Patient Type: [facility] Taken: 12/06/2024 Received: 12/07/2024 Accessioned: 12/07/2024 Reported: 12/09/2024 Physician(s):Janusz Nguyen MD Diagnosis: Cecal polyp, biopsy: - Consistent with early tubular adenoma. - Negative for high-grade dysplasia. Ferny Seals M.D. Report Electronically Reviewed and Signed Out By Ferny Seals M.D. 12/09/2024 09:44:26 Specimen(s) Received: A: Cecum colon polyp x 1 Microscopic Description: Sections show an early tubular adenoma. There is no evidence of high-grade dysplasia or invasive carcinoma. Clinical History: Screen for colon cancer. Colonoscopy. Gross Description: The specimen is submitted in a single formalin filled container labeled BOBBY COTTONWASSER and cecum colon polyp . It is one nicholson tissue fragment measuring 2 mm. All in one cassette. Matt Navarro R.N., P.A./Elisabeth Sheldon M.D. REPORT IMAGES AND SCANNED DOCUMENTS, IF INCLUDED, ONLY VIEWABLE IN PDF VERSION OF REPORT The performance characteristics of some immunohistochemical stains, fluorescence in-situ hybridization tests and immunophenotyping by flow cytometry cited in this report (if any) were determined by the Surgical Pathology Department at [facility] as part of an ongoing clinical quality manager program and in compliance with federally mandated regulations drawn from the Clinical Laboratory Improvement Act of 1988 (CLIA '88). Some of these tests rely on the use of analyte specific reagents and are subject to specific labeling requirements by the US Food and Drug Administration. Such diagnostic tests may only be performed in a facility that is certified by the Department of Health and Human Services as a high complexity laboratory under CLIA '88. The FDA has determined that such clearance or approval is not necessary. This test is used for clinical purposes. It should not be regarded as investigational or for research. Nevertheless, federal rules concerning the medical use of analyte specific reagents require that the following disclaimer be attached to the report: This test was developed and its performance characteristics determined by the Surgical Pathology Department [facility]. It has not been cleared or approved by the U. S. Food and Drug Administration. Note for decalcified specimens: This assay has not been validated on decalcified tissues. Results should be interpreted with caution given the possibility of false negativity on decalcified specimens us Janusz Nguyen MD LAB PATHOLOGY OR DERABLES Final Result PATHOLOGY [facility] [address] [place] [address] * Screening Mammogram Bilateral W José (04/18/2021 3:03 PM CDT) Anatomical Region Laterality Modality Breast Bilateral Mammography 04/18/2021 3:15 PM CDT Narrative 04/18/2021 4:15 PM CDT Patient Name: BOBBY ALVARENGA Ordering Dr: Martine Tripp MD D.O.B: 1970 Exam Date: 04/18/21 1503 Age: 50 Sex: Female MR#: [id number] Loc: RADIOLOGY REPORT Order #[id number] [facility] Carmel Bilat Screening 3D Signed - MG BILATERAL DIGITAL SCREENING MAMMOGRAM 3D/2D WITH MEDIOLATERAL OBLIQUE CRANIOCAUDAL: 04/18/2021 The study was acquired using full field digital technology and interpreted from soft copy. 2D digital mammographic views, as well as 3D digital tomosynthesis were performed in the CC and MLO projections. CLINICAL: Routine mammogram. Patient denies any problems. No family history of breast cancer. No personal history of breast cancer. COMPARISONS: Comparison is made to exams dated: 01/09/2020 mammogram, 11/03/2017 mammogram, and 10/26/2015 mammogram - [facility]. BREAST TISSUE: There are scattered areas of fibroglandular density. FINDINGS: No significant masses, calcifications, or other findings are seen in either breast. There has been no significant interval change. IMPRESSION: BI-RAD 1 NEGATIVE There is no mammographic evidence of malignancy. A 1 year screening mammogram is recommended. The patient has been or will be contacted. We recommend annual screening mammography for women at average risk of breast cancer beginning at age 40, based on guidelines of the [employer] (ACR Practice Parameter for the Performance of Screening and Diagnostic Mammography) and [place] [employer]. For women with an elevated risk of breast cancer, please refer to the ACR Practice Parameter for specific screening recommendations. The patient will be entered into a reminder system with a target due date of 1 year for her next screening exam. Electronically signed by: Janusz Shetty M.D., md/tal:04/18/2021 16:15:37 Medical Receptionist: Melani ROBERT(Bert)(Nevin), [facility] letter sent: Normal Exam Reading location: BI-RADS: 1 Negative REPORT ELECTRONICALLY SIGNED IN OTHER VENDOR SYSTEM Resulting Agency Comment O Procedure Note Janusz Shetty MD - 04/18/2021 Patient Name: BOBBY ALVARENGA Dr: Martine Tripp MD D.O.B: 1970 Exam Date: 04/18/21 1503 Age: 50 Sex: Female MR#: [id number] Loc: RADIOLOGY REPORT Order #[id number] [facility] Carmel Bilat Screening 3D Signed - MG BILATERAL DIGITAL SCREENING MAMMOGRAM 3D/2D WITH MEDIOLATERAL OBLIQUE CRANIOCAUDAL: 04/18/2021 The study was acquired using full field digital technology andinterpreted from soft copy. 2D digital mammographic views, as well as 3D digital tomosynthesis were performed in the CC and MLO projections. CLINICAL: Routine mammogram. Patient denies any problems. No familyhistory of breast cancer. No personal history of breast cancer. COMPARISONS: Comparison is made to exams dated: 01/09/2020 mammogram, 11/03/2017 mammogram, and 10/26/2015 mammogram - [facility]. BREAST TISSUE: There are scattered areas of fibroglandular density. FINDINGS: No significant masses, calcifications, or other findings areseen in either breast. There has been no significant interval change. IMPRESSION: BI-RAD 1 NEGATIVE There is no mammographic evidence of malignancy. A 1 year screeningmammogram is recommended. The patient has been or will be contacted. We recommend annual screening mammography for women at average risk ofbreast cancer beginning at age 40, based on guidelines of the [employer] (ACR Practice Parameter for the Performance of Screening and Diagnostic Mammography) and [place] [employer]. For women with an elevated risk of breast cancer, pleaserefer to the ACR Practice Parameter for specific screening recommendations. The patient will be entered into a reminder system with a target due dateof 1 year for her next screening exam. Electronically signed by: Janusz Shetty M.D., md/tal:04/18/2021 16:15:37 Medical Receptionist: Melani MALAVE)(Nevin), [facility] letter sent: Normal Exam Reading location: BI-RADS: 1 Negative REPORT ELECTRONICALLY SIGNED IN OTHER VENDOR SYSTEM Martine Tripp MD IMG MAMMO PROCEDURES Final Resu lt from Last 3 Months or Most Recently Relevant to Health Maintenance Insurance [facility] CHOICE [facility]US [facility] CHOICE [facility]US [facility] CHOICE PLUS Advance Directives For more information, please contact: [phone] * Full Code (Latest Code Status on File) Date Activated Date Inactivated Comments 12/06/2024 11:45 AM 12/06/2024 5:58 PM * Full Code Date Activated Date Inactivated Comments 12/06/2024 11:45 AM 12/06/2024 11:45 AM Care Teams Line Maintenance Technician Relationship Specialty Start Date End Date Rigo Coyne DO [address] [place] [id number] PCP - General Family Medicine 10/25/20
--- OUTSIDE RECORDS SUMMARY | 2025-01-23 18:26 | XMS_ITS | Clinical Summary ---
Author Organization [facility] Address [facility] [place] [address] Care Team Providers Care Concentrator Operator Name Role Phone RyanakhilRigo martinez Isabel TAYLOR Primary Care Provider + Allergies Active Allergy Reactions Criticality Noted Date Comments Hydrocodone Dizziness,Unknown,Palpitations Low 08/16 Terbinafine Rash Low 08/24/2019 Tape Hives Medium 12/20/2024 Surgical tape Medications aspirin 81 MG tablet Take 1 tablet (81 mg total) by mouth daily. Active rosuvastatin 40 MG tablet Take 1 tablet (40 mg total) by mouth nightly at bedtime. Active Multiple Vitamin (MULTIVITAMIN ADULT OR) Active vitamin C 500 MG tablet Active Vitamin D3 (VITAMIN D) 50 mcg tablet Active REPATHA SURECLICK 140 MG/ML injection (PEN) 1 mL (140 mg total) every 14 (fourteen) days. 4 Active estradiol (ESTRACE) 0.1 MG/GM vaginal cream Place vaginally daily. 4 Active tirzepatide (MOUNJARO) 2.5 MG/0.5ML injection Inject 2.5 mg into the skin once a week. Active hydrOXYzine (ATARAX) 25 MG tabletIndicatio ns:Anxiety Take 1-2 tablets (25-50 mg total) by mouth 3 (three) times daily as needed for Anxiety or Itching. 90 tablet 5 Active naproxen (NAPROSYN) 500 MG tabletIndicatio ns:Acute left-sided low back pain with left-sided sciatica Take 1 tablet (500 mg total) by mouth 2 (two) times daily with meals. Don't take with ibuprofen. 60 tablet 5 Active naproxen (NAPROSYN) 500 MG tabletIndicatio ns:Acute left-sided low back pain with left-sided sciatica Take 1 tablet (500 mg total) by mouth 2 (two) times daily with meals. Don't take with ibuprofen. 60 tablet 2 01/13/20 25 Discontinu ed(Reorder ) Active Problems Problem Noted Date Diagnosed Date Lumbar radiculopathy 12/17/2022 Overview (04/08/2024): Added automatically from request for surgery Cervical dysplasia 10/27/2022 LETTY (stress urinary incontinence, female) 2021 Back ache 01/06/2022 Bursitis of left hip, unspecified bursa 01/03/20 Piriformis syndrome, left 01/03/2022 Nerve compression 01/03/2022 Menopausal sweats 02/05/2021 Hot flashes 08/28/2020 Panic attacks 08/28/2020 Migraine without status migr ainosus, not intractable, unspecified migraine type 08/11/2019 TIA (transient ischemic attack) 08/05/2019 Anxiety 08/25/2018 Familial hypercholesterolemia 10/07/2017 Overview (10/14/2018): Last Assessment & Plan: Still elevated despite alirocumab, add crestor 20. Resolved Problems Problem Noted Date Diagnosed Date Resolved Date Onychomycosis 08/11/2019 01/03/2022 Phlebitis 08/05/2019 10/27/2022 Screening, lipid 08/25/2018 07/27/2020 Colon cancer screening 08/25/201807/27 Screening for endocrine, met abolic and immunity disorder 08/25/2018 07/27/2020 Screening for heart disease 08/25/2018 07/27/2020 Encounter for preventive health examination 08/20/2018 07/27/2020 Chest tightness 10/07/2017 10/27/2022 Overview (10/14/2018): Last Assessment & Plan: She complains of new onset chest tightness, with no exertional component, the setting of marked hyperlipidemia, family history of CAD, and an abnormal EKG. At this time I think it is unlikely this represents symptoms from coronary ischemia, however, given her risk factors I do think treadmill stress testing would be appropriate. Encounters Date Type Department Care Team Description 01/13/2025 Telephone [facility] Family & Internal [address] [phone] Rigo Coyne, DO Refill Request 12/29/2024 Telephone [facility] Internal [address] [phone] Rigo Coyne, DO Results 12/22/2024 7:20 AM TRAVELING INVENTORY ASSOCIATE Office Visit [facility] Family Internal [address] [phone] Rigo Coyne, DO Physical (The patient presents for her annual visit. ); Calf Pain (The patient landed on her right leg wrong wile standing on a bar stool. The patient states she landed on the right leg and heard a pop in her calf. This happened on Thursday night. She is resting it and using compression.); Medication Question (The patient would also like to discuss concerns with cortisone injections in her back and the her need for a Dexa. She is also wanting to discuss her statin medication. ) 12/22/2024 Travel 12/06/2024 Scan HEALTH INFO SRVCS Scanned, [facility] Colonoscopy Report (SCAN) 11/22/2024 Scan HEALTH INFO SRVCS Scanned, [facility] from Last 3 Months Immunizations Name Administration Dates Next Due Flucelvax 6 Months+ (Prefill ed Syringe) 08/03/2020 Fluzone 6 Months+ Quad (0.5 mL Prefilled Syringe) 08/13/2023 Influenza Adult (Generic) 10/01/2024,,08/15/2021, 018,08/19/2017 PFIZER COVID-19 (ORIGINAL FORMULATION, PURPLE CAP) mRNA, LNP-S, PF, 30 MCG/0.3 ML DOSE 04/10/2021,03/06/2021 Shingrix 06/03/2022,03/04/2022 Tdap (Historical Only-select from magnify glass) 05/23/2020 Family History Medical History Relation Comments Heart Father Heart Disease Father Hypertension Father Stroke Father Heart Disease Maternal Grandfather Cancer Mother Brain Heart Mother Cancer Paternal Uncle Brain Relation Status Comments Father Maternal Grandfather Mother Paternal Uncle Social History Tobacco Use Types Packs/Day Years Used Date Smoking Tobacco: Never Smokeless Tobacco: Never Tobacco Cessation:Counseling Given: Not Answered Alcohol Use Standard Drinks/Week Comments Not Currently 0 (1 standard drink = 0.6 oz pur e alcohol) AUDIT-C Answer Date Recorded Frequency of Alcohol Consumption Never 02/28/2019 Average Number of Drinks Not on file 019 Frequency of Binge Drinking Not on file 02/14 PHQ-2 Answer Date Recorded Patient Health Questionnaire-2 Score 0 12/22/2024 Comments No Sex and Gender Information Value Date Recorded Sex Assigned at Female 12/22/2024 7:33 AM TRAVELING INVENTORY ASSOCIATE Legal Sex Female 3:51 PM CDT Gender Identity Female 12/22/2024 7:33 AM TRAVELING INVENTORY ASSOCIATE Sexual Orientation Not on file Last Filed Vital Signs Vital Sign Reading Time Taken Comments Blood Pressure 100/64 12/22/2024 7:35 AM TRAVELING INVENTORY ASSOCIATE Pulse 73 12/22/2024 7:35 AM TRAVELING INVENTORY ASSOCIATE Temperature 36.3 C (97.3 F) 12/22/2024 7:35 AM TRAVELING INVENTORY ASSOCIATE Respiratory Rate 16 12/22/2024 7:35 AM TRAVELING INVENTORY ASSOCIATE Oxygen Saturation 98% 12/22/2024 7:35 AM TRAVELING INVENTORY ASSOCIATE Inhaled Oxygen Concentration - - Weight 60.5 kg (133 lb 6.4 oz) 12/22/2024 7:35 A M TRAVELING INVENTORY ASSOCIATE Height 162.6 cm (5' 4 ) 12/22/2024 7:35 AM TRAVELING INVENTORY ASSOCIATE Body Mass Index 22.9 12/22/2024 7:35 AM TRAVELING INVENTORY ASSOCIATE Plan of Treatment Upcoming Encounters Date Type Department Care Team (Late st Contact Info) Description 03/07/2025 7:40 AM CDT Laboratory Only [facility] Family & Internal Medicine - [address] [phone] Rigo Coyne DO [address] [place] [address] 12/25/2025 7:20 AM TRAVELING INVENTORY ASSOCIATE Office Visit [facility] Family & Internal Medicine - [address] [phone] Rigo Coyne DO [address] [place] [id number] Health Maintenance Due Date Last Done Comments ASCVD Statin 1968 Cervical Cancer Screening Pap Smear (Age 30 to 64) Every 3 Years 1968 Hepatitis B Vaccines (1 of 3 - 19+ 3-dose series) 1987 Cervical Cancer Screening Pap with HPV Testing (Age 30 to 64) Every 5 Years 1998 Mammogram Screening 01/19/2025 01/20/2024, 12/03/2022, 04/18/2021, Additional history exists Cervical Cancer Screening with HPV 04/08/2025 Postponed from 1998 (Going to Outside Clinic) COVID-19 Vaccine ( season) 2025 04/10/2021, 03/06/2021 Postponed from 07/17/2024 (Patient Refused) Annual Physical 12/22/2025 12/22/2024, 07/18, 04/22/2021 Colorectal Cancer Screening Colonoscopy (10 Years) 12/06/2029 12/06/2024, 12/06/2024, 02/28/2019 DTaP, Tdap and Td Vaccines (2 - Td or Tdap) 05/23/2030 05/23/2020 Hepatitis C Completed 01/31/2022 Zoster Vaccines Completed 06/03/2022, 03/04/2022 Influenza Adult Completed 10/01/2024, 07/18, 07/31/2022, Additional history exists PHQ-2 (Physician [place]) Completed 12/22/2024 Meningococcal B Vaccine Aged Out No l onger eligible based on patient's age to complete this topic Meningococcal Vaccine Aged Out No clare jeffrey eligible based on patient's age to complete this topic Pneumococcal Vaccine: Pediatrics (0 to 5 Years) and At-Risk Patients (6 to 64 Years) Aged Out No longer eligible based on patient's age to complete this topic RSV Immunizations Under 20 Months Aged Out No longer eligible based on patient's age to complete this topic Procedures Procedure Name Priority Date/Time Associated Diagnosis Comments CBC W/DIFF AUTOMATED Routine 12/22/2024 12:02 PM TRAVELING INVENTORY ASSOCIATE Encounter for preventative adult health care examination Screening for lipid disorders Screening for endocrine, metabolic and immunity disorder COMPREHENSIVE METABOLIC PANEL Routine 12/22/2024 12:02 PM TRAVELING INVENTORY ASSOCIATE Encounter for preventative adult health care examination Screening for lipid disorders Screening for endocrine, metabolic and immunity disorder TSH W/REFLEX Routine 12/22/2024 12:02 PM TRAVELING INVENTORY ASSOCIATE Encounter for preventative adult health care examination Screening for lipid disorders Screening for endocrine, metabolic and immunity disorder LIPID PANEL Routine 12/22/2024 12:02 PM TRAVELING INVENTORY ASSOCIATE Encounter for preventative adult health care examination Screening for lipid disorders Screening for endocrine, metabolic and immunity disorder VITAMIN D, 25 OH Routine 12/22/2024 12:0 2 PM TRAVELING INVENTORY ASSOCIATE Encounter for preventative adult health care examination Screening for lipid disorders Screening for endocrine, metabolic and immunity disorder Vitamin D deficiency COLLECTION VENOUS BLOOD VENIPUNCTURE Routine 12/22/2024 8:10 AM TRAVELING INVENTORY ASSOCIATE Encounter for preventative adult health care examination Screening for lipid disorders Screening for endocrine, metabolic and immunity disorder COLONOSCOPY GENERIC (SCAN ORDER) 12/06/2024 COLONOSCOPY GENERIC (SCAN ORDER) 12/06/2024 MAMMOGRAM GENERIC (SCAN ORDER) 01/20/2024 HEPATITIS C ANTIBODY 01/31/2022 9:25 AM CDT from Last 3 Months or Most Recently Relevant to Health Maintenance Results * TSH W/REFLEX (12/22/2024 12:02 PM TRAVELING INVENTORY ASSOCIATE) TSH 3.494 0.358 - 3.740 uIU/ML 12/22/2024 5:51 PM TRAVELING INVENTORY ASSOCIATE [facility] 12/22/2024 12:0 2 PM TRAVELING INVENTORY ASSOCIATE us Rigo Coyne DO LABORATORY Final Re sult -[facility] [address] [facility] [place] [address], [place] [phone] * (ABNORMAL) COMPREHENSIVE METABOLIC PANEL (12/22/2024 12:02 PM TRAVELING INVENTORY ASSOCIATE) [facility] SODIUM S/P/B 144 136 - 145 MMOL/L 12/22/2024 5:51 PM [facility] POTASSIUM S/P/B 4.2 3.5 - 5.1 MMOL/L 12/22/2024 5:51 PM [facility] CHLORIDE S/P/B 107 98 - 107 MMOL/L 12/22/2024 5:51 PM [facility] CO2 30.2 21 - 32 MMOL/L 12/22/2024 6:04 PM [facility] GLUCOSE 77 70 - 99 MG/DL 12/22/2024 5:51 PM [facility] BUN 28(H) 7 - 18 MG/DL 12/22/2024 5:51 PM [facility] CREATININE S/P/B 0.60 0.55 - 1.02 MG/DL 12/22/2024 5:51 PM [facility] CALCIUM S/P/B 9.0 8.4 - 10.5 MG/DL 12/22/2024 5:51 PM [facility] BILIRUBIN TOTAL S/P/B 0.3 0.2 - 1.0 MG/DL 12/22/2024 5:51 PM [facility] ALKALINE PHOSPHATASE S/P/B 48 46 - 118 U/L 12/22/2024 5:51 PM [facility] AST 29 15 - 37 U/L 12/22/2024 5:51 PM [facility] ALT 66(H) 14 - 59 U/L 12/22/2024 5:51 PM [facility] TOTAL PROTEIN S/P/B 6.5 6.4 - 8.2 G/DL 12/22/2024 5:51 PM TRAVELING INVENTORY ASSOCIATE [facility] ALBUMIN S/P/B 3.7 3.4 - 5.0 G/DL 12/22/2024 5:51 PM TRAVELING INVENTORY ASSOCIATE [facility] ANION GAP 6.8 5 - 15 MMOL/L 12/22/2024 6:04 PM TRAVELING INVENTORY ASSOCIATE [facility] Comment:REFERENCE RANGE NOT ESTABLISHED OSMOLALITY (CALC) 302 MOSM/KG 025 5:51 PM TRAVELING INVENTORY ASSOCIATE [facility] Comment:REFERENCE RANGE NOT ESTABLISHED GFR ESTIMATE >90 >90 ML/MIN/1. 73 M2 12/22/2024 5:51 PM TRAVELING INVENTORY ASSOCIATE [facility] GFR NOTES GFR REFERENCE S: 12/22/2024 5:51 PM TRAVELING INVENTORY ASSOCIATE [facility] Comment: THE ESTIMATED GFR IS CALCULATED USING THE 2020 CKD-EPI EQUATION. THE FOLLOWING CATEGORIES FOR GRADING RENAL FUNCTION ARE RECOMMENDED BY THE INTERNATIONAL SOCIETY OF NEPHROLOGY (KDIGO 2012 CLINICAL PRACTICE GUIDELINE). G1,NORMAL OR HIGH: >89 ml/min/1.73 m2 G2,MILDLY DECREASED: 60-89 ml/min/1.73 m2 G3A,MILDLY TO MODERATELY DECREASED: 45-59 ml/min/1.73 m2 G3B,MODERATELY TO SEVERELY DECREASED: 30-44 ml/min/1.73 m2 G4,SEVERELY DECREASED: 15-29 ml/min/1.73 m2 G5,KIDNEY FAILURE: <15 ml/min/1.73 m2 12/22/2024 12:0 2 PM TRAVELING INVENTORY ASSOCIATE us Rigo Coyne DO LABORATORY Final Re sult [facility] [address] [place] [address], * LIPID PANEL (12/22/2024 12:02 PM TRAVELING INVENTORY ASSOCIATE) CHOLESTEROL 174 <200 MG/DL 12/22/2024 5:51 PM TRAVELING INVENTORY ASSOCIATE [facility] TRIGLYCERIDES 52 <150 MG/DL 12/22/2024 5:51 PM [facility] HDL 67 >40 MG/DL 12/22/2024 5:51 PM [facility] LDL-C 97 <100 MG/DL 12/22/2024 5:51 PM [facility] VLDL CALCULATION 10 5 - 28 MG/DL 12/22/2024 5:51 PM TRAVELING INVENTORY ASSOCIATE [facility] CHOL/HDL RATIO 2.6 0.0 - 4.0 12/22/2024 5:51 PM TRAVELING INVENTORY ASSOCIATE [facility] LDL/HDL 1.4 0.41 - 2.13 12/22/2024 5:51 PM [facility] NON HDL CHOLESTEROL 107 <140 MG/DL 12/22/2024 5:51 PM TRAVELING INVENTORY ASSOCIATE [facility] 12/22/2024 12:0 2 PM TRAVELING INVENTORY ASSOCIATE us Rigo Coyne DO LABORATORY Final Re sult [facility] [address] [place] [address], * (ABNORMAL) CBC W/DIFF AUTOMATED (12/22/2024 12:02 PM TRAVELING INVENTORY ASSOCIATE) WBC 6.08 4.00 - 10.80 x10'3/uL 12/22/2024 2:24 PM TRAVELING INVENTORY ASSOCIATE [facility] RBC 3.71(L) 4.10 - 5.40 x10'6/uL 12/22/2024 2:24 PM TRAVELING INVENTORY ASSOCIATE [facility] HGB 11.9(L) 12.0 - 16.0 G/DL 12/22/2024 2:24 PM TRAVELING INVENTORY ASSOCIATE [facility] HCT 37.2 36.0 - 47.0 % 12/22/2024 2:24 PM [facility] MCV 100.3(H) 78.0 - 100.0 FL 12/22/2024 2:24 PM [facility] MCH 32.1(H) 27.0 - 31.0 PG 12/22/2024 2:24 PM [facility] MCHC 32.0(L) 33.0 - 36.0 G/DL 12/22/2024 2:24 PM [facility] RDW 13.4 11.5 - 14.5 % 12/22/2024 2:24 PM [facility] PLT 257 150 - 350 x10'3/uL 12/22/2024 2:24 PM [facility] MPV 11.2(H) 7.4 - 10.4 FL 12/22/2024 2:24 PM [facility] DIFFERENTIAL TYPE AUTOMATED DIFFERENTIAL 12/22/2024 2:24 PM [facility] NEUTROPHILS % 51.9 % 12/22/2024 2:24 PM [facility] LYMPHOCYTES % 37.5 % 12/22/2024 2:24 PM [facility] MONOCYTES % 7.4 % 12/22/2024 2:24 PM [facility] EOSINOPHILS % 2.3 % 12/22/2024 2:24 PM [facility] BASOPHILS % 0.7 % 12/22/2024 2:24 PM [facility] IMMATURE GRANS % 0.2 % 12/22/2024 2:24 PM [facility] ABS. NEUTROPHILS 3.16 1.60 - 8.30 x10'3/uL 12/22/2024 2:24 PM [facility] ABS. LYMPHOCYTES 2.28 0.80 - 4.70 x10'3/uL 12/22/2024 2:24 PM [facility] ABS. MONOCYTES 0.45 0.00 - 1.50 x10'3/uL 12/22/2024 2:24 PM TRAVELING INVENTORY ASSOCIATE [facility] ABS. EOSINOPHILS 0.14 0.00 - 0.40 x10'3/uL 12/22/2024 2:24 PM TRAVELING INVENTORY ASSOCIATE [facility] ABS. BASOPHILS 0.04 0.00 - 0.20 x10'3/uL 12/22/2024 2:24 PM TRAVELING INVENTORY ASSOCIATE [facility] ABS. IMMATURE GRANULOCYTES 0.01 0.00 - 0.03 x10'3/uL 12/22/2024 2:24 PM TRAVELING INVENTORY ASSOCIATE [facility] 12/22/2024 12:0 2 PM TRAVELING INVENTORY ASSOCIATE Rigo Coyne DO LABORATORY Final Re sult Performing Organization Address City/[facility]/ZIP Co de Phone Number [facility] [address] [place] [address], * VITAMIN D, 25 OH (12/22/2024 12:02 PM TRAVELING INVENTORY ASSOCIATE) VITAMIN D 25 HYDROXY TOTAL S/P/B 37.6 30 - 100 NG/ML 12/22/2024 5:51 PM TRAVELING INVENTORY ASSOCIATE [facility] Comment: DEFICIENT <20 INSUFFICIENT 20-30 SUFFICIENT 30-100 12/22/2024 12:0 2 PM TRAVELING INVENTORY ASSOCIATE Rigo Coyne DO LABORATORY Final Re sult Performing Organization Address City/[facility]/ZIP Co de Phone Number [facility] [address] [place] [phone], * COLONOSCOPY GENERIC (SCAN ORDER) (12/06/2024) 12/06/2024 [facility] Scanned SCANNING Final Resu lt * COLONOSCOPY GENERIC (SCAN ORDER) (12/06/2024) 12/06/2024 us Doc [facility] Group Scanned SCANNING Final Resu lt * MAMMOGRAM GENERIC (SCAN ORDER) (01/20/2024) Anatomical Region Laterality Modality Other 01/20/2024 us Doc [facility] Group Scanned SCANNING Final Resu lt * HEPATITIS C ANTIBODY (01/31/2022 9:25 AM CDT) Pathologist [facility] HEPATITIS C AB 0.1 0.0 - 0.9 s/co ratio [facility] 1 Comment: Negative: < 0.8 Indeterminate: 0.8 - 0.9 Positive: > 0.9 The CDC recommends that a positive HCV antibody result be followed up with a HCV Nucleic Acid Amplification test (392012). 01/31/2022 9:25 AM CDT 01/31/2022 Narrative [facility] - 02/01/2022 8:13 AM CDT Performed at: - [facility] [id number] Funeral Professional: Abdiaziz Rausch PhD, Phone: [phone] Rigo Coyne DO LABORATORY Final Re sult Performing Organization Address City/State/[facility] Co de Phone Number [facility] [address] [place] [address] [facility] 1 from Last 3 Months or Most Recently Relevant to Health Maintenance Insurance Care Teams Concentrator Operator Relationship Specialty Start Date End Date Rigo Coyne DO [address] [place] [id number] PCP - General FAMILY PRACTICE 10/14/18
--- OUTSIDE RECORDS SUMMARY | 2025-01-23 18:26 | XMS_ITS | Encounter Summary ---
Author Organization [facility] Address [address] [place] [address] Care Team Providers Care Security Incident Handler Name Role Phone Rigo Coyne DO Primary Care Provider + Reason for Referral * Surgical (Routine) - Closed Specialty Diagnoses / Procedures Referred By Dev t Referred To Contact Diagnoses Lumbar radiculopathy Procedures Case request operating room: INJECTION EPIDURAL TRANSFORAMINAL L4-5, L5-S1 Mariaa Yi APNP Phone: tel: fax: Referral ID Status Reason Start Date Expiration Date Visits Re quested Visits Authorized [id number] Closed 12/17/2022 12/17/2023 1 1 HEARTH HELPER Encounter Details Date Type Department Care Team (Late st Contact Info) Description 12/17/2022 Prep for Procedure [facility] [place] [phone] Mariaa Yi APNP [address] [place] [phone] Social History Tobacco Use Types Packs/Day Years Used Date Smoking Tobacco: Never Smokeless Tobacco: Never Alcohol Use Standard Drinks/Week Comments No 0 (1 standard drink = 0.6 oz pur e alcohol) AUDIT-C Answer Date Recorded Frequency of Alcohol Consumption Never 02/28/2019 Average Number of Drinks Not on file 019 Frequency of Binge Drinking Not on file 02/14 PHQ-2 Answer Date Recorded PHQ-2 Score - If the patient scores above 3, please move on to questions 3-9 0 02/18/2022 Comments No Sex and Gender Information Value Date Recorded Sex Assigned at Female 12/22/2024 7:33 AM OPEN HEARTH HELPER Legal Sex Female 3:51 PM CDT Gender Identity Female 12/22/2024 7:33 AM OPEN HEARTH HELPER Sexual Orientation Not on file COVID-19 Exposure Response Date Recorded In the last 10 days, have yo u been in contact with someone who was confirmed or suspected to have Coronavirus/COVID-19? No / Unsure 12/17/2022 1:51 PM OPEN HEARTH HELPER documented as of this encounter Plan of Treatment Upcoming Encounters Date Type Department Care Team (Late st Contact Info) Description 03/07/2025 7:40 AM CDT Laboratory Only [facility] Family & Internal [address] [phone] Rigo Coyne DO [address] [place] [address] 12/25/2025 7:20 AM OPEN HEARTH HELPER Office Visit [facility] Internal [address] [phone] Rigo Coyne DO [address] [place] [address] Scheduled Orders Name Type Priority Associated Diagnoses Orde r Schedule Case request operating room: INJECTION EPIDURAL TRANSFORAMINAL L4-5, L5-S1 Case Request Routine Lumbar radiculopathy Once for 1 Occurrences starting 12/17/2022 until 12/17/2022 documented as of this encounter Visit Diagnoses Diagnosis Lumbar radiculopathy- Primary Thoracic or lumbosacral neuritis or radiculitis, unspecified documented in this encounter Additional Health Concerns Assessment Noted Time PHQ-9 Depression Total Score: 0 01/31/20 22 11:06 AM CDT documented as of this encounter Care Teams Security Incident Handler Relationship Specialty Start Date End Date Rigo Coyne [facility] [place] [address] PCP - General FAMILY PRACTICE 10/14/18 documented as of this encounter
--- OUTSIDE RECORDS SUMMARY | 2025-01-23 18:26 | XMS_ITS | Continuity of Care Document ---
Author Organization [facility] Address [address] [place] [address] Phone Care Team Providers Care Legal Records Manager Name Role Phone Todd MS, OTR/L, Annmarie Unavailable Unavail able Procedures Procedure Date Progress Note Therapeutic Exercise Therapeutic Activities Neuromuscular Re-Ed Manual Therapy Hot or Cold Pack Ultrasound Therapeutic Exercise Therapeutic Activities Neuromuscular Re-Ed Manual Therapy Hot or Cold Pack Ultrasound OT Evaluation Low Complexity Therapeutic Exercise Neuromuscular Re-Ed Manual Therapy Hot or Cold Pack Ultrasound Advance Directives Directive Yes / No Effective Date File Name No Information Encounters Encounter Description Practice Location Reason(s) For Visit Diagnoses Date Provider Providers Copied on Encounter [facility], [place], [place], [address], tel:[phone] [place] Other specified postprocedural statesStiffness of right wrist, not elsewhere classifiedPain in right wristOther specified soft tissue disordersParesth esia of skin 8 Todd Anguiano. [address] [facility], [address], [place], [address], [place]. tel:[phone] Referring Provider: Miguel Ferreira [address], [place], [address]. tel:[phone] [facility], [place], [place], [address], tel:[phone] [place] Other specified postprocedural statesStiffness of right wrist, not elsewhere classifiedPain in right wristOther specified soft tissue disordersParesth esia of skin 8 Todd Anguiano. [address] [facility], [address], [place], [place], [facility], . [phone] Referring Provider: Miguel [address], [place], [address]. tel:[phone] [facility], [place], [place], [address], tel:[phone] [place] Other specified postprocedural statesStiffness of right wrist, not elsewhere classifiedPain in right wristOther specified soft tissue disordersParesth esia of skin 8 Todd Anguiano. [address] [facility], [address], [place], [place], [facility], [place]. tel:[phone] Referring Provider: Miguel Ferreira [address], [place], [address]. tel:[phone] Family History Family Member Type Diagnosis Age At Onset No Information Payers Payer name Insurance type Covered green party ID Ismael dangelo(s) Gene [facility] [id number] Social History Type Description Quantity Date Captured Comments Sex Female Smoking Status No Information Chief Complaint And Reason For Visit No Information Reason For Referral Reason For Referral No Information History Of Present Illness Encounter Date Complaint History Of Prese nt Illness No Information Functional Status Date Functional Assessmen t No Information Instructions Date Instruction Additional Infor mation No Information Assessments Type Assessment Date No Information Patient Care Teams Name Effective Dates (start - stop) Status Members No Information
--- OUTSIDE RECORDS SUMMARY | 2025-01-23 18:26 | XMS_ITS | Referral Summary ---
Author Organization [facility] D Address [address] [place] [address] Care Team Providers Care Tugboat Operator Name Role Phone Rigo Coyne DO Primary Care Provide r Encounters Date Type Department Care Team Description 01/18/2025 Telephone [facility] at [address], [address] [place] [address] Betsey Kapadia MD appt question 01/18/2025 2:51 PM CHECKOUT SUPERVISOR - 01/18/2025 11:59 PM CHECKOUT SUPERVISOR Hospital Encounter [facility] at [address], [address] [place] [address] Betsey Kapadia MD Lumbar radiculopathy Discharge Disposition: Discharge to home or self care 01/12/2025 Telephone [facility] at [address], [address] [place] [address] Betsey Kapadia MD 01/05/2025 Orders Only [facility] at [address], [address] [place] [address] Betsey Kapadia MD Lumbar radiculopathy (Primary Dx) 01/03/2025 Telephone [facility] at [facility] [address] [facility] [address] [place] [address] Betsey Kapadia MD Post Procedure 12/20/2024 2:30 PM CHECKOUT SUPERVISOR - 12/20/2024 11:59 PM CHECKOUT SUPERVISOR Hospital Encounter [facility] at [facility] [address] [facility] [address], [address] [place] [address] Betsey Kapadia MD Lumbar radiculopathy Discharge Disposition: Discharge to home or self care 12/06/2024 12:00 PM CHECKOUT SUPERVISOR - 12/06/2024 12:30 PM CHECKOUT SUPERVISOR Surgery [address] [address] Janusz Nguyen MD COLON BIOPSY 12/06/2024 12:37 PM CHECKOUT SUPERVISOR Anesthesia Event [address] [address] Casey Linn MD Williams, Calvin E., MD 12/06/2024 11:34 AM CHECKOUT SUPERVISOR - 12/06/2024 1:57 PM CHECKOUT SUPERVISOR Hospital Encounter [address] [address] Janusz Nguyen MD Screen for colon cancer Discharge Disposition: Discharge to home or self care from Last 3 Months Allergies Active Allergy Reactions Criticality Noted Date [...] 10/07/2017 Assessment & Plan (10/07/2017 3:54 PM CHECKOUT SUPERVISOR): She complains of new onset chest tightness, with no exertional component, the setting of marked hyperlipidemia, family history of CAD, and an abnormal EKG. At this time I think it is unlikely this represents symptoms from coronary ischemia, however, given her risk factors I do think treadmill stress testing would be appropriate. Familial hypercholesterolemia 10/07/2017 Assessment & Plan (10/24/2021 3:26 PM CHECKOUT SUPERVISOR): Continue Repatha on high-dose rosuvastatin. Assessment & Plan (10/25/2020 3:35 PM CHECKOUT SUPERVISOR): Today's LDL is well controlled, continue high-dose statin and PC KS nine inhibitor. Assessment & Plan (10/06/2019 8:11 AM CHECKOUT SUPERVISOR): Marked improvement with the addition of Praluent still potential for additional LDL reduction. Will increase rosuvastatin 40 mg. Assessment & Plan (09/30/2018 11:45 AM CHECKOUT SUPERVISOR): Still elevated despite alirocumab, add crestor 20. Assessment & Plan (10/07/2017 3:55 PM CHECKOUT SUPERVISOR): Still elevated on 75 mg of Praluent. Will increase to 150 mg and reassess. Social History Tobacco Use Types Packs/Day Years [...] on file Legal Sex Female 9:27 PM CHECKOUT SUPERVISOR Gender Identity Not on file Sexual Orientation Not on file Last Filed Vital Signs Vital Sign Reading Time Taken Comments Blood Pressure 150/94 01/18/2025 3:56 PM CHECKOUT SUPERVISOR Pulse 63 01/18/2025 3:56 PM CHECKOUT SUPERVISOR Temperature 36 C (96.8 F) 01/18/2025 2:54 PM CHECKOUT SUPERVISOR Respiratory Rate 18 01/18/2025 3:56 PM CHECKOUT SUPERVISOR Oxygen Saturation 100% 01/18/2025 3:56 PM CHECKOUT SUPERVISOR Inhaled Oxygen Concentration - - Weight 57.2 kg (126 lb) 01/18/2025 2:54 PM CHECKOUT SUPERVISOR Height 160 cm (5' 3 ) 01/18/2025 2:54 PM CHECKOUT SUPERVISOR Body Mass Index 22.32 01/18/2025 2:54 PM CHECKOUT SUPERVISOR Plan of Treatment Not on file Goals Goal Patient Goal Type Associated Problems [...] stairs Contact your local community or senior ro[place] for information on exercise, fall prevention programs, or options for improving home safety. Procedures Procedure Name Priority Date/Time Associated Diagnosis Comments PAIN MGMT IMAGING LUMBAR/SACRAL SELECTIVE NERVE ROOT INJ (TFE) RIGHT Schedule Routine, Read Routine (OP Routine) 01/18/2025 3:43 PM CHECKOUT SUPERVISOR Lumbar radiculopathy PAIN MGMT IMAGING LUMBAR/SACRAL SELECTIVE NERVE ROOT INJ (TFE) LEFT Schedule Routine, Read Routine (OP Routine) 12/20/2024 3:30 PM CHECKOUT SUPERVISOR Lumbar radiculopathy COLON BIOPSY 12/06/2024 12:25 PM CHECKOUT SUPERVISOR Screen for colon cancer COLONOSCOPY 12/06/2024 11:48 AM CHECKOUT SUPERVISOR SURGICAL PATHOLOGY STAT 12/06/2024 10 :08 AM CHECKOUT SUPERVISOR Screen for colon cancer SCREENING MAMMOGRAM BILATERAL W JOSÉ 04/18/2021 3:03 PM CDT from Last 3 Months or Most Recently Relevant to Health Maintenance Results * Imaging Lumbar/Sacral Selective Nerve Root INJ (TFE) Right (04101) (01/18/2025 3:43 PM CHECKOUT SUPERVISOR) Narrative RAD_PACS_[facility] - 01/18/2025 3:55 PM CHECKOUT SUPERVISOR The images from this study are not interpreted by Radiology. Please refer to the physician's procedure / OR operative note. Betsey WOODALL PAIN MGMT PROCEDURES F inal Result RAD_PACS_[facility] * Imaging Lumbar/Sacral Selective Nerve Root INJ (TFE) Left (42080) (12/20/2024 3:30 PM CHECKOUT SUPERVISOR) Narrative RAD_PACS[facility] - 12/20/2024 3:36 PM CHECKOUT SUPERVISOR The images from this study are not interpreted by Radiology. Please refer to the physician's procedure / OR operative note. Betsey Kapadia MD IMG PAIN MGMT PROCEDURES F inal Result RAD_PACS[facility] * Colonoscopy (12/06/2024 11:48 AM CHECKOUT SUPERVISOR) Anatomical Region Laterality Modality Other Narrative Procedure Note Janusz Nguyen MD - 12/06/2024 11:48 AM CST [facility] Patient Name: Bobby Alvarenga Procedure Date: 12/06/2024 11:48 AM Date of : 1970 Admit Type: Outpatient Age: 54 Gender: Female Attending MD: Janusz Nguyen M.D. Room: [facility] ENDOSCOPY ROOM 2 Note Status: Finalized Patient [...] results. - [facility] - Return to endoscopist in 1 week. [...] under direct vision. The Pediatric Colonoscope PCF-H190L [id number] was introducedthrough the anus and advanced to [...] 11:48 AM Procedure Code(s): --- Professional --- 75636, Colonoscopy, flexible; with biopsy, single or multiple --- Technical --- 39642, Colonoscopy, flexible; with biopsy, single or multiple [...] perforation orabscess without bleeding CPT copyright 2020 [employer]. All rights reserved. The codes documented in this report are preliminary and upon customer assistance representative reviewmay be revised to meet current compliance requirements. Recognized by the [employer] for promoting quality in endoscopy us Janusz Nguyen MD ENDOSCOPY PROCED URES Final Result * Surgical pathology (12/06/2024 10:08 AM CHECKOUT SUPERVISOR) Tissue (Polyp(s), colon/colorectal, esophageal, gastric) 12/06/2024 12:58 PM CHECKOUT SUPERVISOR Narrative PATHOLOGY [facility] ([facility]) - 12/09/2024 9:44 AM CHECKOUT SUPERVISOR EPIC results best viewed via link to PDF [facility] Department of Pathology [address] [place] [address] Note to Patients: This report may contain [...] Final Report Patient Name: BOBBY ALVARENGA Address: [address] [place] [address] Gender: F : 1970 (Age: 54) Service: Surgery Location: [facility] Hospital #: [id number] Patient Type: [facility] Taken: 12/06/2024 Received: 12/07/2024 Accessioned: 12/07/2024 Reported: [...] a single formalin filled container labeled BOBBY ALVARENGA and cecum colon polyp . It is [...] determined by the Surgical Pathology Department at [facility] as part of an ongoing housing quality standard inspector program and in compliance with federally mandated [...] characteristics determined by the Surgical Pathology Department [facility]. It has not been cleared or approved by the U. S. Food and Drug Administration. Note for decalcified specimens: This assay has not been validated on decalcified tissues. Results should be interpreted with caution given the possibility of false negativity on decalcified specimens Janusz Nguyen MD LAB PATHOLOGY OR DERABLES Final Result Performing Organization Address City/State/[facility] Co de Phone Number PATHOLOGY [address] [address] * Screening Mammogram Bilateral W José (04/18/2021 3:03 PM CDT) Anatomical Region Laterality Modality Breast Bilateral Mammography 04/18/2021 3:15 PM CDT Narrative 04/18/2021 4:15 PM CDT Patient Name: BOBBY ALVARENGA Norm Ordering Dr: Martine Tripp MD D.O.B: 1970 Exam Date: 04/18/21 1503 Age: 50 Sex: Female MR#: [id number] Loc: RADIOLOGY REPORT Order #[id number] [facility] Bilat Screening 3D Signed [...] mammogram, 11/03/2017 mammogram, and 10/26/2015 mammogram - [facility]. BREAST TISSUE: There are scattered [...] age 40, based on guidelines of the [employer] (ACR Practice Parameter for the Performance of Screening and Diagnostic Mammography) and [employer]. For women with an elevated risk of breast cancer, please refer to the ACR Practice Parameter for specific screening recommendations. The patient will be entered into a reminder system with a target due date of 1 year for her next screening exam. Electronically signed by: Janusz Shetty M.D., md/tal:04/18/2021 16:15:37 Colon Therapist: Melani MALAVE)(Nevin), [facility]- Mob letter sent: Normal Exam Reading location: BI-RADS: 1 Negative REPORT ELECTRONICALLY SIGNED IN OTHER VENDOR SYSTEM Resulting Agency Comment O Procedure Note Janusz Shetty MD - 04/18/2021 Patient Name: BOBBY ALVARENGA Dr: Martine Tripp MD D.O.B: 1970 Exam Date: 04/18/21 1503 Age: 50 Sex: Female MR#: [id number] Loc: RADIOLOGY REPORT Order #[id number] [facility] Bilat Screening 3D Signed [...] mammogram, 11/03/2017 mammogram, and 10/26/2015 mammogram - [facility]. BREAST TISSUE: There are scattered areas [...] age 40, based on guidelines of the [employer] (ACR Practice Parameter for the Performance of Screening and Diagnostic Mammography) and [employer]. For women with an elevated risk of breast cancer, pleaserefer to the ACR Practice Parameter for specific screening recommendations. The patient will be entered into a reminder system with a target due dateof 1 year for her next screening exam. Electronically signed by: Janusz Shetty M.D., md/tal:04/18/2021 16:15:37 Colon Therapist: Melani ROBERT(Bert)(Nevin), [facility] letter sent: Normal Exam Reading location: BI-RADS: 1 Negative REPORT ELECTRONICALLY SIGNED IN OTHER VENDOR SYSTEM Martine Tripp MD IMG MAMMO PROCEDURES Final Resu lt from Last 3 Months or Most Recently Relevant to Health Maintenance Insurance [facility] CHOICE PLUS [facility] CHOICE PLUS [facility] CHOICE PLUS Advance Directives For more information, please contact: [phone] * Full Code (Latest Code Status on File) Date Activated Date Inactivated Comments 12/06/2024 11:45 AM 12/06/2024 5:58 PM * Full Code Date Activated Date Inactivated Comments 12/06/2024 11:45 AM 12/06/2024 11:45 AM Care Teams Tugboat Operator Relationship Specialty Start Date End Date Rigo Coyne DO [address] [place] [address] PCP - General Family Medicine 10/25/20
--- OUTSIDE RECORDS SUMMARY | 2025-01-23 18:26 | XMS_ITS | Encounter Summary ---
Author Organization [facility] Address [address] [place] [address] Care Team Providers Care Sales Office Assistant Name Role Phone Mendez Esposito MD Primary Care Provider [phone] Mendez Esposito MD Primary Care Provider [phone] Miscellaneous, Not In File Primary Care Provider Unavailable Rigo Coyne DO Primary Care Provide r Wendy Cantu [facility] Primary Care Provider [phone] Rigo Coyne DO Primary Care Provide r Encounter Details Date Type Department Care Team (Latest Contact Info) Description 12/01/2016 Orders Only [facility] Cardiology ProviderGuerita MD [address] [place] [address] Social History Tobacco Use Types Packs/Day Years Used Date Smoking Tobacco: Never Alcohol Use Standard Drinks/Week Comments No 0 (1 standard drink = 0.6 oz pur e alcohol) Comments Unknown Sex and Gender Information Value Date Recorded Sex Assigned at Not on file Legal Sex Female 9:[address] SUPERVISOR Gender Identity Not on file Sexual Orientation Not on file documented as of this encounter Plan of Treatment Not on file documented as of this encounter Procedures Procedure Name Priority Date/Time Associated Diagnosis Comments CARDIOLOGY REPORT 12/01/2016 12: [address] SUPERVISOR CARDIOLOGY REPORT 12/01/2016 documented in this encounter Results * CARDIOLOGY REPORT (12/01/2016 12:[address] SUPERVISOR) Anatomical Region Laterality Modality Other Narrative 12/01/2016 12:[address] SUPERVISOR Ordered by an unspecified provider. us Historical Provider [facility] C[facility] PROCE DURES Final Result * CARDIOLOGY REPORT (12/01/2016) Anatomical Region Laterality Modality Other Narrative 12/01/2016 Ordered by an unspecified provider. us Historical Provider CV CARDIAC SERVICES PROCE DURES Final Result documented in this encounter Visit Diagnoses Not on filedocumented in this encounter Care Teams Sales Office Assistant Relationship Specialty Start Date End Date Mendez Esposito MD PCP - General 02/13/17 09/28/18 Mendez Esposito MD PCP - General 12/01/16 02/12/17 Miscellaneous, Not In File PCP - General 09/29/1810/04 Rigo Coyne DO PCP - General Family Medicine 10/05/19 01/05/20 Wendy Cantu CNM [facility] [place] [address] PCP - General 01/06/20 10/24/20 Rigo Coyne DO [address] [place] [address] PCP - General Family Medicine 10/25/20 documented as of this encounter
== END 2025-01-23 15:40 | disposition home or self-care (01) ==
LOC: ANHIMG 15:48
PROVIDERS: Visit Provider Obstetrics & Gynecology
DX: Z12.31 Encounter for screening mammogram for malignant neoplasm of breast (principal)
CPT/HCPCS: 77063; 77067

== ENCOUNTER 2025-02-22 12:51 | Outpatient (CLI) | payer OTHER, SELFPAY ==
--- NOTE | ~2025-02-22 | DEXA_ITS ---
Bone Density Report Name: BOBBY COX Age: 54 Sex: Female Ethnicity: White Date of : 1970 Indication: postmenopausal; screening for osteoporosis; height loss; Referring Provider: GOMEZ PRIEST Study: Bone densitometry was performed. Exam Date: February 22, 2025 Accession number: [id number] Bone Density: Region BMD T-score Z-score Classification AP Spine(L1-L4) 0.937 -1.0 0.2 Normal Femoral Neck (Left) 0.573 -2.5 -1.4 Osteoporosis Total Hip (Left) 0.865 -0.6 0.1 Normal Femoral Neck (Right) 0.601 -2.2 -1.1 Osteopenia Total Hip (Right) 0.845 -0.8 0.0 Normal Total Hip Mean 0.855 -0.7 0.1 Normal World Health Organization criteria for BMD impression classify patients as: Normal (T-score at or above -1.0), Osteopenia (T-score between -1.0 and -2.5), or Osteoporosis (T-score at or below -2.5). 10-year Fracture Risk: FRAX not reported because: Some T-score for Spine Total or Hip Total or Femoral Neck at or below -2.5 Clinical Information Provided by Patient: Has used the following medications: Vitamin D, Calcium Patient maximum height was 64.0 Menopause Age: 48 No regular weight bearing exercise Does not regularly consume dairy products Drinks caffeinated beverages Onset of menses at age 10 Number of children 2 Impression: The patient has osteoporosis, based on the Left Femoral Neck T-score. Discussion: INCREASED RISK OF FRACTURE. BONE DENSITY IS UNDESIRABLY LOW AT ONE OR MORE SKELETAL SITES, CONSISTENT WITH POSTMENOPAUSAL OSTEOPOROSIS. This patient's lowest T-score meets the World Health Organization's (WHO) criteria for osteoporosis at one or more sites (T-score -2.5 or below). In untreated patients, the risk of osteoporotic fracture increases approximately two-fold for each 1.0 SD decrease in T-score. Low bone density is not the only risk factor for fracture; also consider factors such as patient's age, frailty or poor health, risk of falling, risk of injury, previous osteoporotic fracture, family history of osteoporosis, cigarette smoking, low body weight, etc. Not everyone with low bone mineral density has osteoporosis; osteomalacia and other metabolic bone disorders should also be considered. Patients who have osteoporosis should be evaluated for specific diseases and conditions (secondary causes) that may cause or contribute to bone loss. The [place] [employer] Endocrinologists (AACE) and National Osteoporosis Foundation (NOF) recommend pharmacologic intervention for all postmenopausal women whose T-score is in this range. The patient should follow a healthful lifestyle (good nutrition with adequate calcium and vitamin D, and appropriate weight-bearing exercise). Follow-Up: Consider a repeat BMD and Vertebral Fracture Assessment (VFA) exam in 2 years or sooner if medically necessary, to reassess this patient's status. Reported by: MARIANNE on 02/22/2025 1:21:00 PM. Reviewed, dictated and finalized at location ANoris FLAHERTY
--- OUTSIDE RECORDS SUMMARY | 2025-02-22 14:05 | XMS_ITS | Encounter Summary ---
Author Organization [facility] Address [address] [place] [address] Care Team Providers Care Bar Host/Hostess Name Role Phone Rigo Coyne DO Primary Care Provider + Reason for Referral * Surgical (Routine) - Closed Specialty Diagnoses / Procedures Referred By Dev t Referred To Contact Diagnoses Lumbar radiculopathy Procedures Case request operating room: INJECTION EPIDURAL TRANSFORAMINAL L4-5, L5-S1 Mariaa Yi APNP Phone: tel: fax: Referral ID Status Reason Start Date Expiration Date Visits Re quested Visits Authorized [id number] Closed 12/17/2022 12/17/2023 1 1 ING MACHINE ATTENDANT Encounter Details Date Type Department Care Team (Late st Contact Info) Description 12/17/[address] [facility] Interventional [place] [address] [phone] Mariaa Yi APNP [address] [place] [phone] Social History Tobacco Use Types Packs/Day Years [...] Sex Assigned at Female 12/22/2024 7:33 AM SORTING MACHINE ATTENDANT Legal Sex Female 3:51 PM CDT Gender Identity Female 12/22/2024 7:33 AM SORTING MACHINE ATTENDANT Sexual Orientation Not on file COVID-19 Exposure Response Date Recorded In the last 10 days, have yo u been in contact with someone who was confirmed or suspected to have Coronavirus/COVID-19? No / Unsure 12/17/2022 1:51 PM SORTING MACHINE ATTENDANT documented as of this encounter Plan of Treatment Upcoming Encounters Date Type Department Care Team (Late st Contact Info) Description 03/07/2025 7:40 AM CDT Laboratory Only [facility] Family & Internal [address] [address] Rigo Coyne DO [address] [place] [address] 12/25/2025 7:20 AM SORTING MACHINE ATTENDANT Office Visit [facility] Internal [address] [address] Rigo Coyne DO [address] [place] [address] Scheduled Orders Name Type Priority Associated Diagnoses [...] documented as of this encounter Care Teams Bar Host/Hostess Relationship Specialty Start Date End Date Rigo Coyne [facility] [place] [address] PCP - General FAMILY PRACTICE 10/14/18 documented as of this encounter
--- OUTSIDE RECORDS SUMMARY | 2025-02-22 14:05 | XMS_ITS | Clinical Summary ---
Author Organization [facility] Address [facility] [place] [address] Care Team Providers Care Bath Attendant Name Role Phone RyanakhilRigo martinez Isabel TAYLOR [...] take with ibuprofen. 60 tablet 5 Active cyclobenzaprine (FLEXERIL) 5 MG tabletIndicatio ns:Acute left-sided low back pain with left-sided sciatica Take 1-2 tablets (5-10 mg total) by mouth 3 (three) times daily as needed for Muscle Spasms. 60 tablet 5 Active traMADol (ULTRAM) 50 MG tabletIndicatio ns:Acute Pain < 7 Day Supply Take 1 tablet (50 mg total) by mouth every 6 (six) hours as needed for Pain. Indications: Acute Pain < 7 Day Supply 28 tablet 5 Active Active Problems Problem Noted Date Diagnosed Date Lumbar radiculopathy 12/17/2022 Overview (04/08/2024): Added automatically from request for surgery [id number] Cervical dysplasia 10/27/2022 LETTY (stress urinary incontinence, [...] Encounters Date Type Department Care Team Description 02/09/2025 Telephone [facility] Family Internal [address] [phone] Rigo Coyne, DO Medication Request 01/27/2025 Telephone [facility] Internal [address] [phone] Rigo Coyne, DO Medication Request 01/13/2025 Telephone [facility] Internal [address] [phone] Rigo Coyne, DO Refill Request 12/29/2024 Telephone [facility] Internal [address] [phone] Rigo Coyne, DO Results 12/22/2024 7:20 AM NURSING EDUCATION CONSULTANT Office Visit [facility] Internal [address] [phone] Rigo Coyne, DO Physical (The patient presents [...] Scanned, [facility] Colonoscopy Report (SCAN) from Last 3 Months Immunizations Name Administration [...] Sex Assigned at Female 12/22/2024 7:33 AM NURSING EDUCATION CONSULTANT Legal Sex Female 3:51 PM CDT Gender Identity Female 12/22/2024 7:33 AM NURSING EDUCATION CONSULTANT Sexual Orientation Not on file Last Filed Vital Signs Vital Sign Reading Time Taken Comments Blood Pressure 100/64 12/22/2024 7:35 AM NURSING EDUCATION CONSULTANT Pulse 73 12/22/2024 7:35 AM NURSING EDUCATION CONSULTANT Temperature 36.3 C (97.3 F) 12/22/2024 7:35 AM NURSING EDUCATION CONSULTANT Respiratory Rate 16 12/22/2024 7:35 AM NURSING EDUCATION CONSULTANT Oxygen Saturation 98% 12/22/2024 7:35 AM NURSING EDUCATION CONSULTANT Inhaled Oxygen Concentration - - Weight 60.5 kg (133 lb 6.4 oz) 12/22/2024 7:35 A M NURSING EDUCATION CONSULTANT Height 162.6 cm (5' 4 ) 12/22/2024 7:35 AM NURSING EDUCATION CONSULTANT Body Mass Index 22.9 12/22/2024 7:35 AM NURSING EDUCATION CONSULTANT Plan of Treatment Upcoming Encounters Date Type Department Care Team (Late st Contact Info) Description 03/07/2025 7:40 AM CDT Laboratory Only [facility] Family & Internal Medicine [address] [phone] Rigo Coyne, DO [address] [place] [phone] 12/25/2025 7:20 AM NURSING EDUCATION CONSULTANT Office Visit [facility] Internal [address] [phone] Rigo Coyne, DO [address] [place] [phone] Health Maintenance Due Date Last Done Comments [...] Completed 01/31/2022 Zoster Vaccines Completed 06/03/2022, 03/04/2022 PHQ-2 (Physician Saxman) Completed 12/22/2024 Meningococcal B Vaccine Aged Out [...] CBC W/DIFF AUTOMATED Routine 12/22/2024 12:02 PM NURSING EDUCATION CONSULTANT Encounter for preventative adult health care examination Screening for lipid disorders Screening for endocrine, metabolic and immunity disorder COMPREHENSIVE METABOLIC PANEL Routine 12/22/2024 12:02 PM NURSING EDUCATION CONSULTANT Encounter for preventative adult health care examination Screening for lipid disorders Screening for endocrine, metabolic and immunity disorder TSH W/REFLEX Routine 12/22/2024 12:02 PM NURSING EDUCATION CONSULTANT Encounter for preventative adult health care examination Screening for lipid disorders Screening for endocrine, metabolic and immunity disorder LIPID PANEL Routine 12/22/2024 12:02 PM NURSING EDUCATION CONSULTANT Encounter for preventative adult health care examination Screening for lipid disorders Screening for endocrine, metabolic and immunity disorder VITAMIN D, 25 [place] Routine 12/22/2024 12:0 2 PM NURSING EDUCATION CONSULTANT Encounter for preventative adult health care examination Screening for lipid disorders Screening for endocrine, metabolic and immunity disorder Vitamin D deficiency COLLECTION VENOUS BLOOD VENIPUNCTURE Routine 12/22/2024 8:10 AM NURSING EDUCATION CONSULTANT Encounter for preventative adult health care examination Screening for lipid disorders Screening for endocrine, metabolic and immunity disorder COLONOSCOPY GENERIC (SCAN ORDER) 12/06/2024 COLONOSCOPY GENERIC (SCAN ORDER) 12/06/2024 MAMMOGRAM GENERIC (SCAN ORDER) 01/20/2024 HEPATITIS C ANTIBODY 01/31/2022 9:25 AM CDT from Last 3 Months or Most Recently Relevant to Health Maintenance Results * TSH W/REFLEX (12/22/2024 12:02 PM NURSING EDUCATION CONSULTANT) TSH 3.494 0.358 - 3.740 uIU/ML 12/22/2024 5:51 PM NURSING EDUCATION CONSULTANT [facility] 12/22/2024 12:0 2 PM NURSING EDUCATION CONSULTANT Rigo Coyne DO LABORATORY Final Re sult [facility] [place] [address] [place] [address], [place] [phone] * (ABNORMAL) COMPREHENSIVE METABOLIC PANEL (12/22/2024 12:02 PM NURSING EDUCATION CONSULTANT) Pathologist [facility] SODIUM S/P/B 144 136 - 145 MMOL/L 12/22/2024 5:51 PM [facility] POTASSIUM S/P/B 4.2 3.5 - 5.1 MMOL/L 12/22/2024 5:51 PM NURSING EDUCATION CONSULTANT [facility] CHLORIDE S/P/B 107 98 - 107 MMOL/L 12/22/2024 5:51 PM [facility] CO2 30.2 21 - 32 MMOL/L 12/22/2024 6:04 PM [facility] GLUCOSE 77 70 - 99 MG/DL 12/22/2024 5:51 PM [facility] BUN 28(H) 7 - 18 MG/DL 12/22/2024 5:51 PM [facility] CREATININE S/P/B 0.60 0.55 - 1.02 MG/DL 12/22/2024 5:51 PM [facility] CALCIUM S/P/B 9.0 8.4 - 10.5 MG/DL 12/22/2024 5:51 PM [facility] BILIRUBIN TOTAL S/P/B 0.3 0.2 - 1.0 MG/DL 12/22/2024 5:51 PM [facility] ALKALINE PHOSPHATASE S/P/B 48 46 - 118 U/L 12/22/2024 5:51 PM NURSING EDUCATION CONSULTANT [facility] AST 29 15 - 37 U/L 12/22/2024 5:51 PM [facility] ALT 66(H) 14 - 59 U/L 12/22/2024 5:51 PM NURSING EDUCATION CONSULTANT [facility] TOTAL PROTEIN S/P/B 6.5 6.4 - 8.2 G/DL 12/22/2024 5:51 PM NURSING EDUCATION CONSULTANT [facility] ALBUMIN S/P/B 3.7 3.4 - 5.0 G/DL 12/22/2024 5:51 PM [facility] ANION GAP 6.8 5 - 15 MMOL/L 12/22/2024 6:04 PM [facility] Comment:REFERENCE RANGE NOT ESTABLISHED OSMOLALITY (CALC) 302 MOSM/KG 025 5:51 PM [facility] Comment:REFERENCE RANGE NOT ESTABLISHED GFR ESTIMATE >90 >90 ML/MIN/1. 73 M2 12/22/2024 5:51 PM NURSING EDUCATION CONSULTANT [facility] GFR NOTES GFR REFERENCE S: 12/22/2024 5:51 PM [facility] Comment: THE ESTIMATED GFR IS CALCULATED USING [...] <15 ml/min/1.73 m2 12/22/2024 12:0 2 PM NURSING EDUCATION CONSULTANT Rigo Coyne DO LABORATORY Final Re sult Performing Organization Address City/[facility]/ZIP Co de Phone Number [facility] [place] [address] [place] [address], * LIPID PANEL (12/22/2024 12:02 PM NURSING EDUCATION CONSULTANT) CHOLESTEROL 174 <200 MG/DL 12/22/2024 5:51 PM NURSING EDUCATION CONSULTANT [facility] TRIGLYCERIDES 52 <150 MG/DL 12/22/2024 5:51 PM NURSING EDUCATION CONSULTANT [facility] HDL 67 >40 MG/DL 12/22/2024 5:51 PM NURSING EDUCATION CONSULTANT [facility] LDL-C 97 <100 MG/DL 12/22/2024 5:51 PM NURSING EDUCATION CONSULTANT [facility] VLDL CALCULATION 10 5 - 28 MG/DL 12/22/2024 5:51 PM NURSING EDUCATION CONSULTANT [facility] CHOL/HDL RATIO 2.6 0.0 - 4.0 12/22/2024 5:51 PM NURSING EDUCATION CONSULTANT [facility] LDL/HDL 1.4 0.41 - 2.13 12/22/2024 5:51 PM NURSING EDUCATION CONSULTANT [facility] NON HDL CHOLESTEROL 107 <140 MG/DL 12/22/2024 5:51 PM NURSING EDUCATION CONSULTANT [facility] 12/22/2024 12:0 2 PM NURSING EDUCATION CONSULTANT Rigo Coyne DO LABORATORY Final Re sult Performing Organization Address City/[facility]/ZIP Co de Phone Number [facility] [place] [address] [place] [address], * (ABNORMAL) CBC W/DIFF AUTOMATED (12/22/2024 12:02 PM NURSING EDUCATION CONSULTANT) WBC 6.08 4.00 - 10.80 x10'3/uL 12/22/2024 2:24 PM NURSING EDUCATION CONSULTANT [facility] RBC 3.71(L) 4.10 - 5.40 x10'6/uL 12/22/2024 2:24 PM [facility] HGB 11.9(L) 12.0 - 16.0 G/DL 12/22/2024 2:24 PM [facility] HCT 37.2 36.0 - 47.0 % 12/22/2024 2:24 PM [facility] MCV 100.3(H) 78.0 - 100.0 FL 12/22/2024 2:24 PM [facility] MCH 32.1(H) 27.0 - 31.0 PG 12/22/2024 2:24 PM [facility] MCHC 32.0(L) 33.0 - 36.0 G/DL 12/22/2024 2:24 PM [facility] RDW 13.4 11.5 - 14.5 % 12/22/2024 2:24 PM [facility] PLT 257 150 - 350 x10'3/uL 12/22/2024 2:24 PM [facility] MPV 11.2(H) 7.4 - 10.4 FL 12/22/2024 2:24 PM [facility] DIFFERENTIAL TYPE AUTOMATED DIFFERENTIAL 12/22/2024 2:24 PM [facility] NEUTROPHILS % 51.9 % 12/22/2024 2:24 PM [facility] LYMPHOCYTES % 37.5 % 12/22/2024 2:24 PM [facility] MONOCYTES % 7.4 % 12/22/2024 2:24 PM [facility] EOSINOPHILS % 2.3 % 12/22/2024 2:24 PM [facility] BASOPHILS % 0.7 % 12/22/2024 2:24 PM [facility] IMMATURE GRANS % 0.2 % 12/22/2024 2:24 PM NURSING EDUCATION CONSULTANT [facility] ABS. NEUTROPHILS 3.16 1.60 - 8.30 x10'3/uL 12/22/2024 2:24 PM NURSING EDUCATION CONSULTANT [facility] ABS. LYMPHOCYTES 2.28 0.80 - 4.70 x10'3/uL 12/22/2024 2:24 PM NURSING EDUCATION CONSULTANT [facility] ABS. MONOCYTES 0.45 0.00 - 1.50 x10'3/uL 12/22/2024 2:24 PM NURSING EDUCATION CONSULTANT [facility] ABS. EOSINOPHILS 0.14 0.00 - 0.40 x10'3/uL 12/22/2024 2:24 PM NURSING EDUCATION CONSULTANT [facility] ABS. BASOPHILS 0.04 0.00 - 0.20 x10'3/uL 12/22/2024 2:24 PM NURSING EDUCATION CONSULTANT [facility] ABS. IMMATURE GRANULOCYTES 0.01 0.00 - 0.03 x10'3/uL 12/22/2024 2:24 PM NURSING EDUCATION CONSULTANT [facility] 12/22/2024 12:0 2 PM NURSING EDUCATION CONSULTANT Rigo Coyne DO LABORATORY Final Re sult Performing Organization Address [facility]/ZIP Co de Phone Number [facility] [address] [place] [address], * VITAMIN D, 25 [place] (12/22/2024 12:02 PM NURSING EDUCATION CONSULTANT) VITAMIN D 25 HYDROXY TOTAL S/P/B 37.6 30 - 100 NG/ML 12/22/2024 5:51 PM NURSING EDUCATION CONSULTANT [facility] Comment: DEFICIENT <20 INSUFFICIENT 20-30 SUFFICIENT 30-100 12/22/2024 12:0 2 PM NURSING EDUCATION CONSULTANT Rigo Coyne LABORATORY Final Re sult -[facility], [place] [address] [facility] [place] [address], * COLONOSCOPY GENERIC (SCAN ORDER) (12/06/2024) 12/06/2024 [facility] Scanned SCANNING Final Resu lt * COLONOSCOPY GENERIC (SCAN ORDER) (12/06/2024) 12/06/2024 [facility] Scanned SCANNING Final Resu lt * MAMMOGRAM GENERIC (SCAN ORDER) (01/20/2024) Anatomical Region Laterality Modality Other 01/20/2024 [facility] Scanned SCANNING Final Resu lt * HEPATITIS C ANTIBODY (01/31/2022 9:25 AM CDT) Pathologist [facility] HEPATITIS C AB 0.1 0.0 - 0.9 s/co ratio [facility] 1 Comment: Negative: < 0.8 Indeterminate: 0.8 - 0.9 Positive: > 0.9 The CDC recommends that a positive HCV antibody result be followed up with a HCV Nucleic Acid Amplification test (875402). 01/31/2022 9:25 AM CDT 01/31/2022 Narrative [facility] - 02/01/2022 8:13 AM CDT Performed at: 01 - [facility] [address] [id number] Biotechnologist: Abdiaziz Rausch PhD, Phone: [phone] Rigo Coyne DO LABORATORY Final Re sult [facility] [address] [place] [address] [facility] 1 from Last 3 Months or Most Recently Relevant to Health Maintenance Insurance [facility] Care Teams Bath Attendant Relationship Specialty Start Date End Date Rigo Coyne DO [address] [place] [phone] PCP - General FAMILY PRACTICE 10/14/18
--- OUTSIDE RECORDS SUMMARY | 2025-02-22 14:05 | XMS_ITS | Encounter Summary ---
Author Organization [facility] Address [address] [place] [address] Care Team Providers Care Director Digital Strategy Name Role Phone Rigo Coyne DO Primary Care Provider + Encounter Details Date Type Department Care Team (Latest Contact Info) Description 09/21/2018 Abstract [facility] , Shannon Bhakta MD Social History Tobacco Use Types Packs/Day Years Used Date Smoking Tobacco: Never Assessed Comments Unknown Sex and Gender Information Value Date Recorded Sex Assigned at Female 12/22/2024 7:33 AM NATURAL SCIENCES MANAGER Legal Sex Female 3:51 PM CDT Gender Identity Female 12/22/2024 7:33 AM NATURAL SCIENCES MANAGER Sexual Orientation Not on file documented as of this encounter Plan of Treatment Upcoming Encounters Date Type Department Care Team (Late st Contact Info) Description 03/07/2025 7:40 AM CDT Laboratory Only [facility] Family & Internal Medicine [id number] [place] [phone] Rigo Coyne DO [address] [place] [address] 12/25/2025 7:20 AM NATURAL SCIENCES MANAGER Office Visit [facility] Family & Internal Medicine [place] [address] [place] [address] Rigo Coyne DO [address] [place] [address] documented as of this encounter Visit Diagnoses Not on filedocumented in this encounter Care Teams Director Digital Strategy Relationship Specialty Start Date End Date Rigo Coyne DO [address] [place] [phone] PCP - General FAMILY PRACTICE 10/14/18 documented as of this encounter
== END 2025-02-22 12:52 | disposition home or self-care (01) ==
PROVIDERS: PCP Student in an Organized Health Care Education/Training Program; Visit Provider Nurse Practitioner Obstetrics & Gynecology
DX: M81.0 Age-related osteoporosis without current pathological fracture (principal); M85.851 Other specified disorders of bone density and structure, right thigh; Z78.0 Asymptomatic menopausal state
CPT/HCPCS: 77080